=== PATIENT | female | born 1975 | race Caucasian/White ===

== ENCOUNTER 2017-07-15 12:03 | Emergency (ER) | payer OTHER ==
[~2017-07-15] VITALS: Ht 154.9 cm; Wt 80.0 kg
[~2017-07-15 12:03] MED LIST: AMIT10TA6 PO; CART120C PO; FIORINAL2 PO; LEVO75TA3 PO; MEDR4PAK PO; MELA5 PO; NITR1SUB2 SL; OMEP20TA93 PO
[2017-07-15 12:09] VITALS: BP 157/105; PULSE 95; RESP 16; TEMP 97.9
[2017-07-15] MEDS ORDERED: SODIUM CHLOR 0.9% 1000 ML INJ 1,000 ML IV ONE (12:13)
[2017-07-15 12:15] VITALS: O2SAT 98
[2017-07-15] MEDS ORDERED: diphenhydrAMINE HCL 50 MG/ML VIAL IVP ONE (12:15)
[2017-07-15] MEDS ORDERED: SODIUM CHLORIDE 0.9% FLUSH 10 ML FLUSH IVF PRN (12:15)
[2017-07-15] MEDS ORDERED: METOCLOPRAMIDE HCL 10 MG/2 ML VIAL IVP ONE (12:15)
[2017-07-15] MEDS ORDERED: KETOROLAC TROMETHAMINE 30 MG/ML (IVP) VIAL IVP ONE (12:15)
--- NOTE | 2017-07-15 12:15 | PD ---
HPI Chief Complaint: Neuro Symptoms/ Deficits Time Seen by Provider: 12:15 Travel History International Travel<30 days: No Contact w/Intl Traveler<30days: No Traveled to known affect area: No History of Present Illness HPI is a 42-year-old female with a history of recurrent migraines presents to the emergency department today because she had numbness and tingling in her left upper left lower extremity prior to arrival. Patient denies any focalized weakness. She states she was driving to hear anyways to be seen for her headache. States the headache is signed, denies any nausea or vomiting, states she took her medicine at home for migraine and didn't help. Symptoms for the past 3 days, gradually worsening, associated signs symptoms as above, context as above. PFSH Past Medical History Blood Disorders: No Heart Rhythm Problems: No Cancer: No Cardiac Catheterization: No Cardiovascular Problems: Yes High Cholesterol: Yes Chemotherapy: No Chest Pain: Yes Congestive Heart Failure: No Diabetes: No Diminished Hearing: No Endocrine: No Genitourinary: No Immune Disorder: No Musculoskeletal: No Neurologic: No Psychiatric: No Reproductive: No Respiratory: No Radiation Therapy: No Thyroid Disease: Yes Tubal Ligation: Yes Past Surgical History Abdominal Surgery: Yes (right ovary;biopsy left ovary) Coronary Artery Bypass Graft: No Hysterectomy: Yes Other Surgery: Yes (exploratory lap x 2) Social History Alcohol Use: No Tobacco Use: No Substance Use: No Allergies-Medications (Allergen,Severity, Reaction): Coded Allergies: No Known Allergies (Unverified Adverse Reaction, Unknown, 06/29/17) Reported Meds & Prescriptions Reported Meds & Active Scripts Active Medrol Dosepak (Methylprednisolone) 4 Mg Dspk 4 Mg PO DIRECTED Per Pharmacist direction Medrol Dosepak (Methylprednisolone) 4 Mg Dspk 4 Mg PO DIRECTED Per Pharmacist direction Fiorinal (Butalbital/Aspirin/Caffeine) 50-325-40 Mg Cap 1 Cap PO Q6HR PRN Do not exceed 6 capsules/day. Melatonin 5 Mg Tab 5 Mg PO HS Omeprazole 20 Mg Tab 20 Mg PO DAILY Amitriptyline (Amitriptyline HCl) 10 Mg Tab 10 Mg PO HS Levothyroxine (Levothyroxine Sodium) 75 Mcg Tab 75 Mcg PO DAILY Reported Nitroglycerin SL (Nitroglycerin) 0.3 Mg Subl 0.3 Mg SL DIRECTED PRN ONE TABLET UNDER THE TONGUE NEEDED FOR CHEST PAIN, MAY REPEAT EVERY FIVE MINUTES FOR A TOTAL OF 3 DOSES OR CALL 911 IF NO RELIEF Cartia Xt (Diltiazem ER 24 HR) 120 Mg Caper 120 Mg PO DAILY Review of Systems Except as stated in HPI: all other systems reviewed are Neg Physical Exam Narrative GENERAL: Well-developed well-nourished no obvious distress SKIN: Focused skin assessment warm/dry. HEAD: Atraumatic. Normocephalic. EYES: Pupils equal and round. No scleral icterus. No injection or drainage. ENT: No nasal bleeding or discharge. Mucous membranes pink and moist. NECK: Trachea midline. No JVD. CARDIOVASCULAR: Regular rate and rhythm. No murmur appreciated. RESPIRATORY: No accessory muscle use. Clear to auscultation. Breath sounds equal bilaterally. GASTROINTESTINAL: Abdomen soft, non-tender, nondistended. Hepatic and splenic margins not palpable. MUSCULOSKELETAL: No obvious deformities. No clubbing. No cyanosis. No edema. NEUROLOGICAL: Awake and alert. No nerves II-12 are grossly intact and nonfocal , 5 out of 5 strength in all 4 extremity's, sensation is intact and equal bilaterally. Ambulates with even narrow based gait. PSYCHIATRIC: Appropriate mood and affect; insight and judgment normal. Data Data Last Documented VS Vital Signs Date Time Temp Pulse Resp B/P (MAP) Pulse Ox O2 Delivery O2 Flow Rate FiO2 07/15/17 15:02 07/15/17 14:39 95 14 100 Room Air 07/15/17 12:09 97.9 Orders Orders Complete Blood Count With Diff (07/15/17 12:13) Comprehensive Metabolic Panel (07/15/17 12:13) Westergren Sedimentation Rate (07/15/17 12:13) C-Reactive Protein (Crp) (07/15/17 12:13) Ct Brain W/O Iv Contrast(Rout) (07/15/17 12:13) Ecg Monitoring (07/15/17 12:13) Iv Access Insert/Monitor (07/15/17 12:13) Oximetry (07/15/17 12:13) Sodium Chloride 0.9% Flush (Ns Flush) (07/15/17 12:15) Ketorolac Inj (Toradol Inj) (07/15/17 12:15) Diphenhydramine Inj (Benadryl Inj) (07/15/17 12:15) Metoclopramide Inj (Reglan Inj) (07/15/17 12:15) Sodium Chlor 0.9% 1000 Ml Inj (Ns 1000 M (07/15/17 12:13) Ed Discharge Order (07/15/17 14:56) Electrocardiogram (07/15/17 12:17) Labs Laboratory Tests Test 07/15/17 12:25 White Blood Count 6.9 TH/MM3 Red Blood Count 4.56 MIL/MM3 Hemoglobin 14.1 GM/DL Hematocrit 41.9 % Mean Corpuscular Volume 91.9 FL Mean Corpuscular Hemoglobin 30.9 PG Mean Corpuscular Hemoglobin Concent 33.6 % Red Cell Distribution Width 14.2 % Platelet Count 210 TH/MM3 Mean Platelet Volume 7.8 FL Neutrophils (%) (Auto) 61.3 % Lymphocytes (%) (Auto) 32.6 % Monocytes (%) (Auto) 4.8 % Eosinophils (%) (Auto) 0.8 % Basophils (%) (Auto) 0.5 % Neutrophils # (Auto) 4.2 TH/MM3 Lymphocytes # (Auto) 2.3 TH/MM3 Monocytes # (Auto) 0.3 TH/MM3 Eosinophils # (Auto) 0.1 TH/MM3 Basophils # (Auto) 0.0 TH/MM3 CBC Comment DIFF FINAL Differential Comment Erythrocyte Sedimentation Rate 5 mm/hr Blood Urea Nitrogen 14 MG/DL Creatinine 0.74 MG/DL Random Glucose 99 MG/DL Total Protein 7.2 GM/DL Albumin 3.7 GM/DL Calcium Level 8.7 MG/DL Alkaline Phosphatase 48 U/L Aspartate Amino Transf (AST/SGOT) 17 U/L Alanine Aminotransferase (ALT/SGPT) 29 U/L Total Bilirubin 0.4 MG/DL Sodium Level 139 MEQ/L Potassium Level 3.5 MEQ/L Chloride Level 107 MEQ/L Carbon Dioxide Level 24.4 MEQ/L Anion Gap 8 MEQ/L Estimat Glomerular Filtration Rate 85 ML/MIN C-Reactive Protein 0.47 MG/DL [facility] Medical Decision Making Medical Screen Exam Complete: Yes Emergency Medical Condition: Yes Differential Diagnosis Complex migraine, TIA seems unlikely, CVA seems highly unlikely. Narrative Course Patient roomed in emergency department, on further history she states this happened once before and she was placed on steroids which helped. She was given a medicine in the emergency department had some relief, but she appears comfortable and in no obvious distress. Neurologic exam is completely nonfocal although she does endorse some mild left sided numbness and tingling. Basic workup was negative in the emergency department including a CAT scan of her head. ESR and CRP are negative as well. Patient low risk for cerebrovascular disease seems fairly atypical for as well. Discussed outpatient follow-up with a neurologist will place her on a Medrol Dosepak. Discussed return to ED criteria. Diagnosis Primary Impression: Headache Additional Impression: Migraine Referrals: Dinorah Florez MD Med/Other Pt SpecificInfo: Prescription(s) given Scripts Methylprednisolone Dosepak (Medrol Dosepak) 4 Mg Dspk 4 MG PO DIRECTED, #1 DSPK 0 Refills Per Pharmacist direction Prov: Regino Mao MD 07/15/17 Disposition: 01 DISCHARGE HOME Condition: Stable Regino Mao MD Jul 15, 2017 12:15
[2017-07-15 12:51] LABS: AUTOMATED NEUTROPHIL # 4.2 TH/MM3 (1.8-7.7); BASOPHIL % 0.5 % (0.0-2.0); EOSINOPHIL # 0.1 TH/MM3 (0-0.4); EOSINOPHIL % 0.8 % (0.0-4.0); HEMATOCRIT 41.9 % (35.0-46.0); HEMO FLAGS DIFF FINAL; LYMPH % 32.6 % (9.0-44.0); LYMPHOCYTE # 2.3 TH/MM3 (1.0-4.8); MEAN CELL VOLUME 91.9 FL (80.0-100.0); MEAN CORPUSCULAR HEMOGLOBIN 30.9 PG (27.0-34.0); MEAN CORPUSCULAR HGB CONC 33.6 % (32.0-36.0); MONO % 4.8 % (0.0-8.0); NEUT % 61.3 % (16.0-70.0); PLATELET COUNT 210 TH/MM3 (150-450); RED BLOOD COUNT 4.56 MIL/MM3 (4.00-5.30); RED CELL DISTRIBUTION WIDTH 14.2 % (11.6-17.2); WHITE BLOOD COUNT 6.9 TH/MM3 (4.0-11.0)
[2017-07-15 13:08] LABS: ALT (GPT) 29 U/L (10-53); ANION GAP 8 MEQ/L (5-15); AST (GOT) 17 U/L (15-37); BICARBONATE 24.4 MEQ/L (21.0-32.0); BLOOD UREA NITROGEN 14 MG/DL (7-18); CHLORIDE 107 MEQ/L (98-107); GLOMERULAR FILTRATION RATE 85 ML/MIN (>89); POTASSIUM 3.5 MEQ/L (3.5-5.1); SODIUM (NA) 139 MEQ/L (136-145)
--- NOTE | 2017-07-15 13:09 | RADRPT ---
EXAM DATE/TIME: 07/15/2017 12:55 [facility] COMPARISON: No previous studies available for comparison. INDICATIONS : Cephalgia. Left facial numbness. RADIATION DOSE: 34.46 CTDIvol (mGy) MEDICAL HISTORY : None SURGICAL HISTORY : Hysterectomy. Cholecystectomy. ENCOUNTER: Initial ACUITY: 1 day PAIN SCALE: 5/10 LOCATION: Bilateral cranial TECHNIQUE: Multiple contiguous axial images were obtained of the head. Using automated exposure control and adj ustment of the mA and/or kV according to patient size, radiation dose was kept as low as reasonably a chievable to obtain optimal diagnostic quality images. DICOM format image data is available electro nically for review and comparison. FINDINGS: CEREBRUM: The ventricles are normal for age. No evidence of midline shift, mass lesion, hemorrhage or acute in farction. No extra-axial fluid collections are seen. POSTERIOR FOSSA: The cerebellum and brainstem are intact. The 4th ventricle is midline. The cerebellopontine angle i s unremarkable. EXTRACRANIAL: The visualized portion of the orbits is intact. SKULL: The calvaria is intact. No evidence of skull fracture. CONCLUSION: No acute disease. Regino Barron MD on July 15, 2017 at 13:07 Board Certified Radiologist. This report was verified electronically.
[2017-07-15 13:10] LABS: ALKALINE PHOSPHATASE 48 U/L (45-117); TOTAL BILIRUBIN ADULT 0.4 MG/DL (0.2-1.0)
[2017-07-15 13:20] VITALS: BP 158/98; PULSE 98; RESP 16; O2SAT 100
[2017-07-15 14:39] VITALS: BP 137/97; PULSE 95; RESP 14; O2SAT 100
[2017-07-15] MEDS ORDERED: MEDR4PAK PO (14:55)
--- NOTE | 2017-07-16 15:52 | EKG ---
Date Performed: 07/15/2017 Time Performed: 12:17:19 PTAGE: 42 years EKG: Sinus rhythm NORMAL ECG Compared to PREVIOUS TRACING , QRS voltage slightly improved in the precordial leads. PREVIOUS TRACIN 11/15/2015 09.22 DOCTOR: Benjamín Sabillon Interpretating Date/Time 07/16/2017 15:51:12
== END 2017-07-15 15:03 | disposition home or self-care (01) ==
LOC: NEPC 12:03
DX: G43.909 Migraine, unspecified, not intractable, without status migrainosus (principal); R20.0 Anesthesia of skin; E78.00 Pure hypercholesterolemia, unspecified; E07.9 Disorder of thyroid, unspecified; Z79.899 Other long term (current) drug therapy
CPT/HCPCS: 70450; 80053; 85025; 85652; 86140; 93005; 96361; 96374; 96375; 99285; J1200; J1885; J2765; J7030

== ENCOUNTER 2017-07-24 17:59 | Observation (INO) | payer OTHER ==
[~2017-07-24] VITALS: Ht 154.9 cm; Wt 80.0 kg
[2017-07-24 18:15] VITALS: BP 127/81; PULSE 66; RESP 20; TEMP 97.8; O2SAT 97
[2017-07-24] MEDS ORDERED: SODIUM CHLORIDE 0.9% FLUSH 10 ML FLUSH IVF PRN (18:15)
[2017-07-24] MEDS ORDERED: NITROGLYCERIN 2% OINT 1 GM PACKET TOP ONE (18:15)
[2017-07-24] MEDS ORDERED: ASPIRIN 81 MG CHEW TAB PO ONE (18:15)
[2017-07-24] MEDS ORDERED: MORPHINE SULFATE 4 MG/ML INJ IV PUSH ONE (18:15)
[2017-07-24 18:33] VITALS: RESP 16; O2SAT 98
--- NOTE | 2017-07-24 18:49 | PD ---
HPI Chief Complaint: Chest Pain Time Seen by Provider: 18:12 Travel History International Travel<30 days: No Contact w/Intl Traveler<30days: No Traveled to known affect area: No History of Present Illness HPI 42-year-old female with a history of Prinzmetal's angina, hypothyroidism, presents today after having an episode of chest pain. Patient states she had substernal chest pain that radiated to her left side and shoulder. It lasted several minutes. She reported it as an 8 out of 10 on the pain score. She took 2 of her own nitroglycerin decrease it to a 6. When fire arrived they gave her 2 baby aspirins and 2 further nitros which dropped her pain to a 4. She denies any shortness of breath. She denies any nausea. There is no reported diaphoresis. The patient denies any history of tobaccoism. She has no history of hypertension. She states she has borderline elevated cholesterol but her art history instructor told her that she did not need to be on medications at this time. PFSH Past Medical History Blood Disorders: No Heart Rhythm Problems: No Cancer: No Cardiac Catheterization: No Cardiovascular Problems: Yes High Cholesterol: Yes Chemotherapy: No Chest Pain: Yes Congestive Heart Failure: No Coronary Artery Disease: Yes Diabetes: No Diminished Hearing: No Endocrine: No Genitourinary: No Headaches: Yes Immune Disorder: No Musculoskeletal: No Neurologic: No Psychiatric: No Reproductive: No Respiratory: No Radiation Therapy: No Thyroid Disease: Yes (HYPO) Tetanus Vaccination: > 5 Years Influenza Vaccination: No ?: Not : 2 Para: 2 Miscarriage: 0 : 0 Tubal Ligation: Yes Past Surgical History Abdominal Surgery: Yes (right ovary;biopsy left ovary) Cholecystectomy: Yes Coronary Artery Bypass Graft: No Hysterectomy: Yes Other Surgery: Yes (HYSTERECTOMY, TUBAL LIGATION) Social History Alcohol Use: No Tobacco Use: No Substance Use: No Allergies-Medications (Allergen,Severity, Reaction): Coded Allergies: No Known Allergies (Unverified Allergy, Unknown, 07/24/17) Reported Meds & Prescriptions Reported Meds & Active Scripts Active Fiorinal (Butalbital/Aspirin/Caffeine) 50-325-40 Mg Cap 1 Cap PO Q6HR PRN Do not exceed 6 capsules/day. Melatonin 5 Mg Tab 5 Mg PO HS Omeprazole 20 Mg Tab 20 Mg PO DAILY Amitriptyline (Amitriptyline HCl) 10 Mg Tab 10 Mg PO HS Levothyroxine (Levothyroxine Sodium) 75 Mcg Tab 75 Mcg PO DAILY Reported Nitroglycerin SL (Nitroglycerin) 0.3 Mg Subl 0.3 Mg SL DIRECTED PRN ONE TABLET UNDER THE TONGUE NEEDED FOR CHEST PAIN, MAY REPEAT EVERY FIVE MINUTES FOR A TOTAL OF 3 DOSES OR CALL 911 IF NO RELIEF Cartia Xt (Diltiazem ER 24 HR) 120 Mg Caper 120 Mg PO DAILY Review of Systems Except as stated in HPI: all other systems reviewed are Neg General / Constitutional: No: Fever HENT: No: Headaches, Lightheadedness Cardiovascular: Positive: Chest Pain or Discomfort, No: Palpitations, Irregular Rhythm Respiratory: No: Cough Gastrointestinal: No: Nausea, Vomiting, Abdominal Pain Genitourinary: No: Frequency, Dysuria Musculoskeletal: No: Weakness, Pain Neurologic: No: Weakness, Dizziness, Headache Psychiatric: No: Substance Abuse Physical Exam Narrative GENERAL: Well-developed well-nourished female in no acute respiratory distress. SKIN: Focused skin assessment warm/dry. HEAD: Atraumatic. Normocephalic. EYES: No scleral icterus. No injection or drainage. ENT: No nasal bleeding or discharge. Mucous membranes pink and moist. NECK: Trachea midline. No JVD. Supple. CARDIOVASCULAR: Regular rate and rhythm. No murmur appreciated. RESPIRATORY: No accessory muscle use. Clear to auscultation. Breath sounds equal bilaterally. GASTROINTESTINAL: Abdomen soft, non-tender, nondistended. Hepatic and splenic margins not palpable. MUSCULOSKELETAL: No obvious deformities. No clubbing. No cyanosis. No edema. NEUROLOGICAL: Awake and alert. No obvious cranial nerve deficits. Motor grossly within normal limits. Normal speech. Data Data Last Documented VS Vital Signs Date Time Temp Pulse Resp B/P (MAP) Pulse Ox O2 Delivery O2 Flow Rate FiO2 07/24/17 19:04 81 18 131/84 (100) 97 Room Air 07/24/17 18:15 97.8 Orders Orders Electrocardiogram (07/24/17 18:12) Basic Metabolic Panel (Bmp) (07/24/17 18:12) Ckmb (Isoenzyme) Profile (07/24/17 18:12) Complete Blood Count With Diff (07/24/17 18:12) Magnesium (Mg) (07/24/17 18:12) Prothrombin Time / Inr (Pt) (07/24/17 18:12) Act Partial Throm Time (Ptt) (07/24/17 18:12) Troponin I (07/24/17 18:12) Chest, Single Ap (07/24/17 18:12) Ecg Monitoring (07/24/17 18:12) Bilateral Bp Monitoring (07/24/17 18:12) Iv Access Insert/Monitor (07/24/17 18:12) Oximetry (07/24/17 18:12) Oxygen Administration (07/24/17 18:12) Aspirin Chew (Aspirin Chew) (07/24/17 18:15) Morphine Inj (Morphine Inj) (07/24/17 18:15) Nitroglycerin 2% Oint (Nitroglycerin 2% (07/24/17 18:15) Sodium Chloride 0.9% Flush (Ns Flush) (07/24/17 18:15) Admit Order (Ed Use Only) (07/24/17 ) Labs Laboratory Tests Test 07/24/17 18:40 07/24/17 19:30 White Blood Count 7.5 TH/MM3 Red Blood Count 4.40 MIL/MM3 Hemoglobin 13.8 GM/DL Hematocrit 40.3 % Mean Corpuscular Volume 91.6 FL Mean Corpuscular Hemoglobin 31.4 PG Mean Corpuscular Hemoglobin Concent 34.3 % Red Cell Distribution Width 14.2 % Platelet Count 221 TH/MM3 Mean Platelet Volume 8.1 FL Neutrophils (%) (Auto) 58.4 % Lymphocytes (%) (Auto) 34.6 % Monocytes (%) (Auto) 5.1 % Eosinophils (%) (Auto) 1.1 % Basophils (%) (Auto) 0.8 % Neutrophils # (Auto) 4.4 TH/MM3 Lymphocytes # (Auto) 2.6 TH/MM3 Monocytes # (Auto) 0.4 TH/MM3 Eosinophils # (Auto) 0.1 TH/MM3 Basophils # (Auto) 0.1 TH/MM3 CBC Comment AUTO DIFF Differential Comment AUTO DIFF CONFIRMED Blood Urea Nitrogen 9 MG/DL Creatinine 0.74 MG/DL Random Glucose 86 MG/DL Calcium Level 8.0 MG/DL Magnesium Level 1.9 MG/DL Sodium Level 141 MEQ/L Potassium Level 3.3 MEQ/L Chloride Level 108 MEQ/L Carbon Dioxide Level 25.3 MEQ/L Anion Gap 8 MEQ/L Estimat Glomerular Filtration Rate 85 ML/MIN Total Creatine Kinase 46 U/L Troponin I LESS THAN 0.02 NG/ML Lipase 169 U/L Prothrombin Time 10.2 SEC Prothromb Time International Ratio 0.9 RATIO Activated Partial Thromboplast Time 23.3 SEC MDM Medical Decision Making Medical Screen Exam Complete: Yes Emergency Medical Condition: Yes Differential Diagnosis ACS versus muscle skeletal discomfort versus peptic ulcer disease versus Prinzmetal angina Narrative Course This is a 42-year-old female with a history of Prinzmetal's angina, presents with complaints of chest pain. Patient reports the pain as an 8 out of 10 when it started. EKG shows no evidence of acute process. Patient has labs pending. She'll be signed out to Dr. Samuel, physician replacing me at change of shift. Disposition will be per her. Diagnosis Primary Impression: Chest pain Qualified Codes: R07.9 - Chest pain, unspecified Gurpreet Macias MD Jul 24, 2017 18:49
[2017-07-24 18:55] LABS: AUTOMATED NEUTROPHIL # 4.4 TH/MM3 (1.8-7.7); BASOPHIL # 0.1 TH/MM3 (0-0.2); BASOPHIL % 0.8 % (0.0-2.0); EOSINOPHIL # 0.1 TH/MM3 (0-0.4); EOSINOPHIL % 1.1 % (0.0-4.0); HEMATOCRIT 40.3 % (35.0-46.0); LYMPH % 34.6 % (9.0-44.0); LYMPHOCYTE # 2.6 TH/MM3 (1.0-4.8); MEAN CELL VOLUME 91.6 FL (80.0-100.0); MEAN CORPUSCULAR HEMOGLOBIN 31.4 PG (27.0-34.0); MEAN CORPUSCULAR HGB CONC 34.3 % (32.0-36.0); MONO % 5.1 % (0.0-8.0); NEUT % 58.4 % (16.0-70.0); PLATELET COUNT 221 TH/MM3 (150-450); RED CELL DISTRIBUTION WIDTH 14.2 % (11.6-17.2); WHITE BLOOD COUNT 7.5 TH/MM3 (4.0-11.0)
--- NOTE | 2017-07-24 18:55 | RADRPT ---
EXAM DATE/TIME: 07/24/2017 18:21 [facility] COMPARISON: CHEST SINGLE AP, June 26, 2016, 18:30. INDICATIONS : Chest pain. MEDICAL HISTORY : Hypothyroidism. Diastolic dysfunction, coronary artery spasms. SURGICAL HISTORY : Hysterectomy. Cholecystectomy. ENCOUNTER: Initial ACUITY: 1 day PAIN SCORE: 6/10 LOCATION: Bilateral chest FINDINGS: A single view of the chest demonstrates the lungs to be symmetrically aerated without evidence of mas s, infiltrate or effusion. The cardiomediastinal contours are unremarkable. Osseous structures are intact. CONCLUSION: The lungs are clear. Cam Bird MD on July 24, 2017 at 18:53 Board Certified Radiologist. This report was verified electronically.
[2017-07-24 18:57] LABS: HEMO FLAGS AUTO DIFF
[2017-07-24 19:04] VITALS: BP 131/84; PULSE 81; RESP 18; O2SAT 97
[2017-07-24 19:22] LABS: ANION GAP 8 MEQ/L (5-15); BICARBONATE 25.3 MEQ/L (21.0-32.0); BLOOD UREA NITROGEN 9 MG/DL (7-18); CHLORIDE 108 MEQ/L (98-107); CREATINE KINASE 46 U/L (26-192); GLOMERULAR FILTRATION RATE 85 ML/MIN (>89); MAGNESIUM 1.9 MG/DL (1.5-2.5); POTASSIUM 3.3 MEQ/L (3.5-5.1); SODIUM (NA) 141 MEQ/L (136-145)
[2017-07-24 19:31] LABS: SCAN/DIFF AUTO DIFF CONFIRMED
--- NOTE | 2017-07-24 19:56 | PD ---
Physical Exam Narrative Since signed out to me by Dr. Macias. Please see his documentation for complete details. Briefly, patient has history of Prinzmetal angina. She came in today because she had severe chest pain. She reports some shortness of breath with nausea and a feeling of heat at the time. She says she still has some chest pain but her symptoms have improved. She also reports that she has had blurred vision and some tingling and weakness to the left side of her face and left arm that comes and goes. She says she was here last week and was told she may have had a TIA. Per notes, she had a negative CT of her head and it was thought that her symptoms may be related to migraine at that time. However, she says that her symptoms have not resolved. Exam shows no neurologic abnormalities. She has equal strength in both her arms and legs. Heart is regular in rate and rhythm. Lungs are clear to auscultation. Data Data Last Documented VS Vital Signs Date Time Temp Pulse Resp B/P (MAP) Pulse Ox O2 Delivery O2 Flow Rate FiO2 07/24/17 19:04 81 18 131/84 (100) 97 Room Air 07/24/17 18:15 97.8 Orders Orders Electrocardiogram (07/24/17 18:12) Basic Metabolic Panel (Bmp) (07/24/17 18:12) Ckmb (Isoenzyme) Profile (07/24/17 18:12) Complete Blood Count With Diff (07/24/17 18:12) Magnesium (Mg) (07/24/17 18:12) Prothrombin Time / Inr (Pt) (07/24/17 18:12) Act Partial Throm Time (Ptt) (07/24/17 18:12) Troponin I (07/24/17 18:12) Chest, Single Ap (07/24/17 18:12) Ecg Monitoring (07/24/17 18:12) Bilateral Bp Monitoring (07/24/17 18:12) Iv Access Insert/Monitor (07/24/17 18:12) Oximetry (07/24/17 18:12) Oxygen Administration (07/24/17 18:12) Aspirin Chew (Aspirin Chew) (07/24/17 18:15) Morphine Inj (Morphine Inj) (07/24/17 18:15) Nitroglycerin 2% Oint (Nitroglycerin 2% (07/24/17 18:15) Sodium Chloride 0.9% Flush (Ns Flush) (07/24/17 18:15) Labs Laboratory Tests Test 07/24/17 18:40 07/24/17 19:30 White Blood Count 7.5 TH/MM3 Red Blood Count 4.40 MIL/MM3 Hemoglobin 13.8 GM/DL Hematocrit 40.3 % Mean Corpuscular Volume 91.6 FL Mean Corpuscular Hemoglobin 31.4 PG Mean Corpuscular Hemoglobin Concent 34.3 % Red Cell Distribution Width 14.2 % Platelet Count 221 TH/MM3 Mean Platelet Volume 8.1 FL Neutrophils (%) (Auto) 58.4 % Lymphocytes (%) (Auto) 34.6 % Monocytes (%) (Auto) 5.1 % Eosinophils (%) (Auto) 1.1 % Basophils (%) (Auto) 0.8 % Neutrophils # (Auto) 4.4 TH/MM3 Lymphocytes # (Auto) 2.6 TH/MM3 Monocytes # (Auto) 0.4 TH/MM3 Eosinophils # (Auto) 0.1 TH/MM3 Basophils # (Auto) 0.1 TH/MM3 CBC Comment AUTO DIFF Differential Comment AUTO DIFF CONFIRMED Blood Urea Nitrogen 9 MG/DL Creatinine 0.74 MG/DL Random Glucose 86 MG/DL Calcium Level 8.0 MG/DL Magnesium Level 1.9 MG/DL Sodium Level 141 MEQ/L Potassium Level 3.3 MEQ/L Chloride Level 108 MEQ/L Carbon Dioxide Level 25.3 MEQ/L Anion Gap 8 MEQ/L Estimat Glomerular Filtration Rate 85 ML/MIN Total Creatine Kinase 46 U/L Troponin I LESS THAN 0.02 NG/ML [facility] Supervised Visit with KATIA: No Narrative Course ECG shows no evidence of ischemia. First troponin is negative. Based on patient's continued neurologic symptoms as well as a chest pain. She'll be admitted for further management. Diagnosis Primary Impression: Chest pain Qualified Codes: R07.9 - Chest pain, unspecified Additional Impression: Neurologic abnormality Admitting Information Admitting Physician Requests: Observation Josephine Castellon MD Jul 24, 2017 19:56
[2017-07-24 19:57] LABS: APTT (PATIENT) 23.3 SEC (24.3-30.1); INTERNATIONAL NORMALIZED RATIO 0.9 RATIO; PROTHROMBIN TIME - PATIENT 10.2 SEC (9.8-11.6)
--- NOTE | 2017-07-24 20:45 | HHI.HP ---
[facility] Service [facility] Primary Care Physician Mauro Church MD, R3 Admission Diagnosis Chest pain, neuro symptoms Diagnoses: International Travel<30 Days: No Contact w/Intl Traveler<30days: No History of Present Illness Patient is a 42-year-old patient with a history of coronary artery spasm and migraines who presents with chest pain and neurologic symptoms. She states she was sitting at her desk writing at approximately 5pm this evening and experienced crushing midsternal chest pain radiating to the back and left shoulder and arm. Character was sharp, pressure, crushing pain. Nausea present, no vomiting. Lasted 5-10 minutes. Associated symptoms were lightheadedness and cold sweat. Severity of pain 10+. gave her home dose of nitroglycerin x 2 and symptoms improved but not 100%. She had two more doses of nitro by EMS prior to ED arrival. Pain felt different than coronary artery spasm pain she has had before. Since ED arrival, status-post morphine and pain is now 2-3/10 in intensity but she is status-post multiple doses of morphine, nitroglycerin and aspirin (x1). Last week, patient had neurologic symptoms (07/15). She was driving from a friend's house and she began to feel confused, with left-sided weakness, numbness and tingling. She also had vision changes: she could not see details. She was seen in ED and stroke protocol was initiated. CT scan was performed and negative and patient was sent home with diagnosis of complex migraine. Symptoms lasted through to next day. Referral for neurologist was given in ED, but patient has not established. No current headaches but still has some residual visual acuity loss. No double vision. Left sided tingling returned today but not the weakness. PCP is Dr. Mauro Church. (Meggan Reynolds MD R2) Review of Systems Constitutional: DENIES: Fever, Weight gain, Weight loss, Chills, Change in appetite Eyes: DENIES: Blurred vision, Diplopia Ears, nose, mouth, throat: DENIES: Tinnitus, Hearing loss, Vertigo Respiratory: COMPLAINS OF: Cough, DENIES: Wheezing, Shortness of breath Cardiovascular: COMPLAINS OF: Chest pain, Palpitations, DENIES: PND, Lower Extremity Edema, Orthopnea Gastrointestinal: COMPLAINS OF: Diarrhea (chronic s/p marshall), Nausea, DENIES: Abdominal pain, Black stools, Bloody stools, Constipation, Vomiting Genitourinary: DENIES: Abnormal vaginal bleeding, Urinary frequency, Urinary incontinence, Hematuria, Dysuria Musculoskeletal: DENIES: Joint pain, Muscle aches Integumentary: DENIES: Pruritus, Rash Hematologic/lymphatic: DENIES: Bruising, Lymphadenopathy Neurologic: COMPLAINS OF: Paresthesias (left-sided), Poor Balance, DENIES: Abnormal gait, Headache, Seizures (Meggan Reynolds MD R2) Past Family Social History Past Medical History Past Medical History: Hypothyroidism Coronary artery spasm Fatty liver Visceral hypersensitivity Borderline high cholesterol Recurrent chest pain thought to be due to coronary artery spasm. Heart catheterization 2014 within normal limits. Migraine: history of migraine headache. Seen in [facility] early June 2017 and received Medrol Dosepak and Toradol which improved her symptoms. Past Surgical/Procedural History: Tubal ligation 1996 Multiple laparoscopies from [id number] Partial hysterectomy in 2002 (still has one piece of ovary due to fused to colon ) Cholecystectomy 2016 Other Physicians/Providers Involved in the Care of Patient: Gastroenterology - Dr. Chiang Cardiology - Dr. Naomi Merritt Family History: Father: at 59. She was not Close to him Mother: 63 and healthy. Maternal grandmother: brainstem congenital disorder starting with "s" Siblings: One brother 37 healthy. One half-sister 31 healthy Children: Daughter 26 she has a goiter; son 22 kidney stones. 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 Quit 13 years ago Alcohol: None Illicit drug use: Never Preventative: Cervical cancer screening: She is getting a Pap smear this year with her FOOD PRESERVATION SCIENTIST Dr. Saldana Colonoscopy: At age 48 Hypertension screening: every visit Lipid screening: Patient reports a normal cholesterol result in early 2017 and she does not see the need for the ordering labs at this time Past Surgical History above Reported Medications Reported Meds & Active Scripts Active Medrol Dosepak (Methylprednisolone) 4 Mg Dspk 4 Mg PO DIRECTED Per Pharmacist direction Medrol Dosepak (Methylprednisolone) 4 Mg Dspk 4 Mg PO DIRECTED Per Pharmacist direction Fiorinal (Butalbital/Aspirin/Caffeine) 50-325-40 Mg Cap 1 Cap PO Q6HR PRN Do not exceed 6 capsules/day. Melatonin 5 Mg Tab 5 Mg PO HS Omeprazole 20 Mg Tab 20 Mg PO DAILY Amitriptyline (Amitriptyline HCl) 10 Mg Tab 10 Mg PO HS Levothyroxine (Levothyroxine Sodium) 75 Mcg Tab 75 Mcg PO DAILY Reported Nitroglycerin SL (Nitroglycerin) 0.3 Mg Subl 0.3 Mg SL DIRECTED PRN ONE TABLET UNDER THE TONGUE NEEDED FOR CHEST PAIN, MAY REPEAT EVERY FIVE MINUTES FOR A TOTAL OF 3 DOSES OR CALL 911 IF NO RELIEF Cartia Xt (Diltiazem ER 24 HR) 120 Mg Caper 120 Mg PO DAILY (Meggan Reynolds MD R2) Allergies: Coded Allergies: No Known Allergies (Unverified Allergy, Unknown, 07/24/17) Active Ordered Medications Inpatient Medications Aspirin (Aspirin Chew) 162 mg ONCE ONCE PO Last administered on 07/24/17 18: 48; Start 07/24/17 at 18:15; Stop 07/24/17 at 18:16; Status DC Morphine Sulfate (Morphine Inj) 2 mg ONCE ONCE IV PUSH Last administered on 18:48; Start 07/24/17 at 18:15; Stop 07/24/17 at 18:16; Status DC Nitroglycerin (Nitroglycerin 2% Oint) 1 inch ONCE ONCE TOP Last administered on 07/24/17 18:48; Start 07/24/17 at 18:15; Stop 07/24/17 at 18:16; Status DC Sodium Chloride (NS Flush) 2 ml UNSCH PRN IVF FLUSH AFTER USING IV ACCESS; Start 07/24/17 at 18:15 Family History above Social History above (Meggan Reynolds MD R2) Physical Exam Vital Signs Vital Signs Date Time Temp Pulse Resp B/P (MAP) Pulse Ox O2 Delivery O2 Flow Rate FiO2 07/24/17 19:04 81 18 131/84 (100) 97 Room Air 07/24/17 18:33 16 98 Room Air 07/24/17 18:15 97.8 66 20 127/81 (96) 97 Physical Exam GENERAL: well-nourished patient in no apparent distress. Pleasant. Son at bedside. SKIN: Warm and dry. Tattoos on back x 2. No rashes or ecchymoses. HEAD: Atraumatic. Normocephalic. No scalp or sinus tenderness. EYES: PERRLA. Pupils 3mm. EOMI. No scleral icterus. No injection or drainage. ENT: No nasal bleeding or discharge. Mucous membranes pink and moist. NECK: Trachea midline. No JVD. No meningeal signs. CARDIOVASCULAR: Regular rate and rhythm. No murmurs, gallops, or rubs. CHEST: +chest wall tenderness, mild intensity. RESPIRATORY: No accessory muscle use. Clear to auscultation without wheezes or crackles. GASTROINTESTINAL: Abdomen soft, non-tender, nondistended, obese. Normal bowel sounds. Hepatic and splenic margins not palpable. MUSCULOSKELETAL: Extremities without clubbing, cyanosis, or edema. No obvious deformities. NEUROLOGICAL: Awake and alert. SNUBBER II-XII intact. Visual acuity grossly normal. No cerebellar signs. Reflexes 2+ in UEs and LEs bilaterally. Decreased sensation to light touch and pinprick sensation to left face and LUE only. Motor grossly within normal limits. 5/5 muscle strength in the arms and legs. Normal speech. PSYCHIATRIC: Appropriate mood and affect; insight and judgment normal. Laboratory Laboratory Tests Test 07/24/17 18:40 07/24/17 19:30 White Blood Count 7.5 Red Blood Count 4.40 Hemoglobin 13.8 Hematocrit 40.3 Mean Corpuscular Volume 91.6 Mean Corpuscular Hemoglobin 31.4 Mean Corpuscular Hemoglobin Concent 34.3 Red Cell Distribution Width 14.2 Platelet Count 221 Mean Platelet Volume 8.1 Neutrophils (%) (Auto) 58.4 Lymphocytes (%) (Auto) 34.6 Monocytes (%) (Auto) 5.1 Eosinophils (%) (Auto) 1.1 Basophils (%) (Auto) 0.8 Neutrophils # (Auto) 4.4 Lymphocytes # (Auto) 2.6 Monocytes # (Auto) 0.4 Eosinophils # (Auto) 0.1 Basophils # (Auto) 0.1 CBC Comment AUTO DIFF Differential Comment AUTO DIFF CONFIRMED Blood Urea Nitrogen 9 Creatinine 0.74 Random Glucose 86 Calcium Level 8.0 Magnesium Level 1.9 Sodium Level 141 Potassium Level 3.3 Chloride Level 108 Carbon Dioxide Level 25.3 Anion Gap 8 Estimat Glomerular Filtration Rate 85 Total Creatine Kinase 46 Troponin I LESS THAN 0.02 Prothrombin Time 10.2 Prothromb Time International Ratio 0.9 Activated Partial Thromboplast Time 23.3 (Meggan Reynolds MD R2) Result Diagram: 07/24/17183907/24/171839 Imaging Last Impressions Chest X-Ray 07/24/171811 Signed Impressions: Service Date/Time: Monday, July 24, 2017 18:21 - CONCLUSION: The lungs are clear. Cam Bird MD (Meggan Reynolds MD R2) Caprini VTE Risk Assessment Caprini VTE Risk Assessment: Mod/High Risk (score >= 2) Caprini Risk Assessment Model Point Value = 1 Point Value = 2 Point Value = 3 Point Value = 5 Age 41-60 Minor surgery BMI > 25 kg/m2 Swollen legs Varicose veins or History of unexplained or recurrent spontaneous Oral contraceptives or hormone replacement Sepsis (< 1 month) Serious lung disease, including pneumonia (< 1 month) Abnormal pulmonary function Acute myocardial infarction Congestive heart failure (< 1 month) History of inflammatory bowel disease Medical patient at bed rest Age 61-74 Arthroscopic surgery Major open surgery (> 45 min) Laparoscopic surgery (> 45 min) Malignancy Confined to bed (> 72 hours) Immobilizing plaster cast Central venous access Age >= 75 History of VTE Family history of VTE Factor V Leiden Prothrombin [id number] Lupus anticoagulant Anticardiolipin antibodies Elevated serum homocysteine Heparin-induced thrombocytopenia Other congenital or acquired thrombophilia Stroke (< 1 month) Elective arthroplasty Hip, pelvis, or leg fracture Acute spinal cord injury (< 1 month) Prophylaxis Regimen Total Risk Factor Score Risk Level Prophylaxis Regimen 0-1 Low Early ambulation 2 Moderate Order ONE of the following: *Sequential Compression Device (SCD) *Heparin 5000 units SQ BID 3-4 Higher Order ONE of the following medications: *Heparin 5000 units SQ TID *Enoxaparin/Lovenox 40 mg SQ daily (WT < 150 kg, CrCl > 30 mL/min) *Enoxaparin/Lovenox 30 mg SQ daily (WT < 150 kg, CrCl > 10-29 mL/min) *Enoxaparin/Lovenox 30 mg SQ BID (WT < 150 kg, CrCl > 30 mL/min) AND/OR *Sequential Compression Device (SCD) 5 or more Highest Order ONE of the following medications: *Heparin 5000 units SQ TID (Preferred with Epidurals) *Enoxaparin/Lovenox 40 mg SQ daily (WT < 150 kg, CrCl > 30 mL/min) *Enoxaparin/Lovenox 30 mg SQ daily (WT < 150 kg, CrCl > 10-29 mL/min) *Enoxaparin/Lovenox 30 mg SQ BID (WT < 150 kg, CrCl > 30 mL/min) AND *Sequential Compression Device (SCD) (Meggan Reynolds MD R2) Assessment and Plan Assessment and Plan 42 year old female with coronary artery vasospasm and migraines who presents with chest pain and non-specific neurologic symptoms. She will be admitted for observation, further cardiac studies and neurologic work-up. Code Status Full Code Discussed Condition With Dr. Castellon, Dr. Carcamo (Meggan Reynolds MD R2) Attending Attestation Attending: Dr. Freida Soto --> Dr. Lockhart (on 07/25/2017) (Meggan Reynolds MD R2) I was available for questions re: this pt, but did not interview or examine. Pt to be assessed, including review of this H&P, by Dr Lockhart who assumed FPTS- resident service 07-25-17 (Freida Soto MD) Problem List: (1) Chest pain ICD Codes: R07.9 - Chest pain Status: Acute Plan: Patient has Prinzmetal's angina hx. Floor Grinder is Dr. Naomi Merritt. Presenting with chest pain which improved with nitroglycerin and morphine. Initial studies including cardiac enzymes and EKG unremarkable. She reports having negative cardiac catheterization in 2014. * Admit for observation * Cardiac enzymes, EKG q6hr to monitor for ischemic changes * Pain control with Tylenol 650mg q4hr PRN pain 1-4, [place] 7.5mg-325mg q6hr PRN pain 5-7, morphine 2mg IV PRN pain 8-10, nitroglycerin 0.4mg SL q5min PRN chest pain * Continue Cardizem ER 120mg daily home dose * Aspirin 162mg x 1 in ED, will continue aspirin 325 mg daily tomorrow * Heart healthy diet, no caffeine * Cardiology consult: patient may benefit from inpt stress test (or[facility] to [facility]) (2) Neurologic abnormality ICD Codes: R29.818 - Other symptoms and signs involving the nervous system Status: Acute Plan: Patient reports transient unilateral weakness for which she was seen in ED last week. Weakness resolved but paresthesia persists. Unclear etiology with broad differential to include complex migraine, cervical radiculopathy, MS, TIA , viral syndrome, psychogenic source. Neuro exam only notable for decreased sensation. Patient has normal strength. Visual acuity grossly normal. Suspicion is high for complex migraine. * VS per protocol * Neuro checks q2hr x 12, then q4hr if wnl * MRI brain, MRA brain, US carotids, 2D echo * lipid profile, A1c * PT, OT ordered * Activity OOB with assistance * Neurology consulted. Patient has outpt consult for these symptoms but has not yet established * Hold home Fiorinal (pt has not used it in >1 week) * Continue amitriptyline at 10mg hs home dose (3) Migraine ICD Codes: G43.909 - Migraine, unspecified, not intractable, without status migrainosus Status: Chronic Plan: Currently without any headache, and has not had a headache in the last 24 hours. Not taking Fiorinal over 1 week. * Pain control with as needed Tylenol, [place], morphine * Neurologic consult as noted elsewhere (4) Hypothyroidism ICD Codes: E03.9 - Hypothyroidism Status: Chronic Plan: Continue home dose levothyroxine 75mcg daily Check TSH (5) Fluids/Electrolytes/Nutrition/Prophylaxis Status: Acute Plan: Fluids: tolerating PO Electrolytes: monitor and replete as needed. Mild hypoK on admission, repeat lab prior to repletion Nutrition: heart-healthy diet, NO CAFFEINE DVT Prophylaxis: Early ambulation. Heparin 5000U subQ q12hr/Bilateral SCDs GI Prophylaxis: On omeprazole 20 mg daily at home, will continue PRN anti-HTN: Clonidine 0.1mg PO PRN for SBP > 180/ and/or DBP > 100 Sleep: On melatonin 5 mg nightly, will continue Disposition: Likely 24hr observation and workup, possibly discharge 07/25 (Meggan Reynolds MD R2) Problem Qualifiers (1) Chest pain: Qualified Codes: R07.9 - Chest pain, unspecified Meggan Reynolds MD R2 Jul 24, 2017 20:45 Freida Soto MD Jul 26, 2017 08:53
[2017-07-24 20:51] VITALS: BP 138/88; PULSE 74; RESP 18; O2SAT 97
[2017-07-24] MEDS ORDERED: SENNOSIDES 8.6 MG TAB PO PRN (21:15)
[2017-07-24] MEDS ORDERED: ENALAPRILAT 1.25 MG/ML VIAL IV PUSH PRN (21:15)
[2017-07-24] MEDS ORDERED: NALOXONE HCL 0.4 MG/ML AMP IV PUSH PRN (21:15)
[2017-07-24] MEDS ORDERED: SODIUM CHLORIDE 0.9% FLUSH 10 ML FLUSH IV FLUSH PRN (21:15)
[2017-07-24] MEDS ORDERED: LACTULOSE SYRUP 20 GM/30 ML CUP PO PRN (21:15)
[2017-07-24] MEDS ORDERED: MAGNESIUM HYDROXIDE SUSP 30 ML CUP PO PRN (21:15)
[2017-07-24] MEDS ORDERED: BISACODYL 10 MG SUPP RECTAL PRN (21:15)
[2017-07-24] MEDS ORDERED: ACETAMINOPHEN 325 MG TAB PO PRN (21:15)
[2017-07-24] MEDS ORDERED: ONDANSETRON HCL 4 MG/2 ML VIAL IVP PRN (21:15)
[2017-07-24] MEDS: HEPARIN SODIUM - SQ 10,000 UNITS/ML VIAL SQ SCH (21:24)
[2017-07-24] MEDS ORDERED: MORPHINE SULFATE 4 MG/ML INJ IV PUSH PRN (22:00)
[2017-07-24] MEDS ORDERED: NITROGLYCERIN 0.4 MG SL 25 TABS/BTL SL PRN (22:00)
[2017-07-24 22:22] VITALS: BP 111/69
--- NOTE | 2017-07-24 22:54 | RADRPT ---
EXAM DATE/TIME: 07/24/2017 22:06 [facility] COMPARISON: No previous studies available for comparison. INDICATIONS : Cerebrovascular accident. MEDICAL HISTORY : Hypothyroidism. Hypercholesterolemia. Coronary artery disease. Chest pain. Palpatations. SURGICAL HISTORY : Hysterectomy. Tubal ligation. Right oopherectomy. Biopsy left ovary. ENCOUNTER: Initial ACUITY: 1 day PAIN SCORE: 0/10 LOCATION: Bilateral neck PEAK SYSTOLIC VELOCITIES (cm/sec): ICA/CCA RATIO: Right: 1.0 Left: 0.7 ICA: Right: 87.5 Left: 69.5 CCA: Right: 87.5 Left: 105.7 ECA: Right: 83.1 Left: 85.1 VERTEBRAL: Right: 42.4 antegrade Left: 39.8 antegrade Elevated flow velocities and ICA/CCA ratios have been found to correlate with increased degrees of vessel stenosis, calculated as percentage of diameter relative to a normal segment of distal ICA/CCA FINDINGS: RIGHT CAROTID: No significant stenosis is visualized. The waveforms are within normal limits. LEFT CAROTID: No significant stenosis is visualized. The waveforms are within normal limits. VERTEBRAL ARTERIES: Antegrade flow is seen in both vertebral arteries. MISCELLANEOUS: None. CONCLUSION: Normal hemodynamic profile both carotids. Cam Bird MD on July 24, 2017 at 22:51 Board Certified Radiologist. This report was verified electronically.
[2017-07-24] MEDS: ACETAMINOPHEN/HYDROcodone 325 MG/7.5 MG TAB PO PRN (23:21)
--- NOTE | 2017-07-24 23:23 | EKG ---
Date Performed: 07/24/2017 Time Performed: 18:26:35 PTAGE: 42 years EKG: Sinus rhythm WITH SINUS ARRHYTHMIA NORMAL ECG PREVIOUS TRACING : 07/15/2017 12.17 Compared to prior tracing no significant change DOCTOR: Arian Mercedes Interpretating Date/Time 07/24/2017 23:23:27
[2017-07-24] MEDS: MELATONIN 5 MG TAB PO SCH (23:59)
[2017-07-25] VITALS (8 sets, daily range): BP systolic 116–138; BP diastolic 68–77; PULSE 55–75; RESP 16–18; TEMP 97.6–98.3; O2SAT 95–96
[2017-07-25 01:40] LABS: CREATINE KINASE 32 U/L (26-192)
[2017-07-25 04:53] LABS: BLOOD, URINE NEG (NEG); COMMENT (UR) CULT NOT INDICATED; CULTURE IF INDICATED CULT NOT INDICATED; GLUCOSE,URINE NEG (NEG); KETONE, URINE NEG (NEG); MUCUS URINE FEW /lpf (OCC); NITRITE,URINE NEG (NEG); SQUAMOUS EPITHELIAL CELL URINE 2 /hpf (0-5); URINE COLOR YELLOW (YELLW/STRAW)
[2017-07-25 06:09] LABS: AUTOMATED NEUTROPHIL # 2.8 TH/MM3 (1.8-7.7); BASOPHIL % 0.6 % (0.0-2.0); EOSINOPHIL # 0.1 TH/MM3 (0-0.4); EOSINOPHIL % 1.1 % (0.0-4.0); HEMATOCRIT 38.6 % (35.0-46.0); HEMO FLAGS DIFF FINAL; LYMPHOCYTE # 2.9 TH/MM3 (1.0-4.8); MEAN CELL VOLUME 91.8 FL (80.0-100.0); MEAN CORPUSCULAR HEMOGLOBIN 31.3 PG (27.0-34.0); MEAN CORPUSCULAR HGB CONC 34.1 % (32.0-36.0); MONO % 5.5 % (0.0-8.0); NEUT % 45.8 % (16.0-70.0); PLATELET COUNT 188 TH/MM3 (150-450); RED BLOOD COUNT 4.21 MIL/MM3 (4.00-5.30); RED CELL DISTRIBUTION WIDTH 14.4 % (11.6-17.2); WHITE BLOOD COUNT 6.1 TH/MM3 (4.0-11.0)
[2017-07-25] MEDS: LEVOTHYROXINE SODIUM 75 MCG TAB PO SCH (06:10)
[2017-07-25 06:39] LABS: ALT (GPT) 25 U/L (10-53); ANION GAP 6 MEQ/L (5-15); AST (GOT) 13 U/L (15-37); BICARBONATE 26.8 MEQ/L (21.0-32.0); BLOOD UREA NITROGEN 10 MG/DL (7-18); CHLORIDE 106 MEQ/L (98-107); GLOMERULAR FILTRATION RATE 91 ML/MIN (>89); POTASSIUM 3.6 MEQ/L (3.5-5.1); SODIUM (NA) 139 MEQ/L (136-145)
[2017-07-25 06:49] LABS: ALKALINE PHOSPHATASE 45 U/L (45-117); HDL CHOLESTEROL 46.4 MG/DL (40.0-60.0); LDL CHOLESTEROL 82 MG/DL (0-99); TOTAL BILIRUBIN ADULT 0.3 MG/DL (0.2-1.0)
[2017-07-25 06:55] LABS: CREATINE KINASE 30 U/L (26-192)
[2017-07-25] MEDS: ACETAMINOPHEN/HYDROcodone 325 MG/7.5 MG TAB PO PRN ×2 (08:36→16:47)
[2017-07-25] MEDS: DOCUSATE SODIUM 50 MG/SENNA 8.6 MG TAB PO SCH ×2 (08:36→21:37)
[2017-07-25] MEDS: SODIUM CHLORIDE 0.9% FLUSH 10 ML FLUSH IV FLUSH SCH ×2 (08:36→21:41)
[2017-07-25] MEDS: HEPARIN SODIUM - SQ 10,000 UNITS/ML VIAL SQ SCH ×2 (08:37→21:40)
[2017-07-25] MEDS ORDERED: DILTIAZEM-CD 120 MG CAP ER PO SCH (09:00)
[2017-07-25] MEDS ORDERED: ASPIRIN 325 MG TAB PO SCH (09:00)
[2017-07-25] MEDS ORDERED: PANTOPRAZOLE SOD 20 MG DELAYED RELEASE TAB PO SCH (09:00)
[2017-07-25 11:04] LABS: HEMOGLOBIN A1a 1.3 %; HEMOGLOBIN A1b 1.8 %; HEMOGLOBIN Ao 85.4 %; HEMOGLOBIN LA1C 1.9 %; HEMOGLOBIN P3 3.4 %
--- NOTE | 2017-07-25 11:20 | RADRPT ---
EXAM DATE/TIME: 07/25/2017 09:00 [facility] COMPARISON: MRI BRAIN W/O CONTRAST, July 25, 2017, 9:00. INDICATIONS : Left sided weakness. Intermittent. MEDICAL HISTORY : Cardiovascular disease SURGICAL HISTORY : Cholecystectomy. Tubal ligation. Hysterectomy. ENCOUNTER: Initial ACUITY: 1 week PAIN SCORE: 0/10 LOCATION: cranial Please note a normal MRA of the brain does not entirely exclude the possibility of a small aneurysm, nor the possibility of distal intracranial vessel disease. TECHNIQUE: 3D time of flight MRA was performed. Source images, multiplanar STS MIP, and 3D volume MIP reconstru ctions were reviewed. FINDINGS: There is excellent visualization of the major intracranial arteries out to the second-order branch ve ssels. There is no evidence for aneurysm, vessel truncation or stenosis, and no evidence for vascula r malformation. Flow is seen in the anterior communicating artery and bilateral PCOM. CONCLUSION: 1. No evidence of vessel truncation or aneurysm. 2. Complete burns paiute of [place]ino[place]. Cam Bird MD on July 25, 2017 at 11:14 Board Certified Radiologist. This report was verified electronically.
--- NOTE | 2017-07-25 11:21 | RADRPT ---
EXAM DATE/TIME: 07/25/2017 09:00 [facility] COMPARISON: No previous studies available for comparison. INDICATIONS : Left sided weakness. Intermittent. MEDICAL HISTORY : Cardiovascular disease SURGICAL HISTORY : Hysterectomy. Cholecystectomy. Tubal ligation. ENCOUNTER: Initial ACUITY: 1 week PAIN SCORE: 0/10 LOCATION: cranial TECHNIQUE: Multiplanar, multisequence MRI of the brain was performed without contrast. FINDINGS: CEREBRUM: The ventricles are normal for age. No evidence of midline shift, mass lesion, hemorrhage or acute in farction. No extraaxial fluid collections are seen. The pituitary gland and suprasellar cistern are normal in configuration. WHITE MATTER: No significant signal abnormalities are seen in the white matter. POSTERIOR FOSSA: The cerebellum and brainstem are intact. The 4th ventricle is midline. The cerebellopontine angle is unremarkable. The cerebellar tonsils are normal in position. DIFFUSION IMAGING: No focal areas of restricted diffusion are seen. No evidence of acute infarction. EXTRACRANIAL: The visualized portions of the orbits and paranasal sinuses are unremarkable. CONCLUSION: Normal noncontrast MRI of the brain. Cam Bird MD on July 25, 2017 at 11:18 Board Certified Radiologist. This report was verified electronically.
[2017-07-25] MEDS: TOPIRAMATE 25 MG TAB PO SCH ×2 (13:32→21:37)
--- NOTE | 2017-07-25 13:33 | MB ---
cc: NEW LEE M.D. DATE OF CONSULTATION: 07/25/2017. REASON FOR CONSULTATION: Hemiplegic migraine. HISTORY OF PRESENT ILLNESS: Ms. Cabrera is a very nice 42-year-old woman who has a long history of migraine headaches. She also has a history of intermittent chest pain. She states she had a cardiac catheterization in the past and was diagnosed as having coronary spasm. She takes diltiazem for that. She is now admitted with chest pain but states a week ago she developed severe headache and a throbbing, pounding left-sided headache with associated tingling of the left face and left arm and weakness in the left arm and some slowing of her speech. In addition, her vision was blurred. She came to the emergency room. CT brain negative. The neurologic symptoms have subsided but she still has some residual numbness of the left mandibular area and down the left arm with neck pain. The numbness did not affect the leg. PAST MEDICAL HISTORY: 1. She has a history of coronary spasm and chest pain. 2. History of migraine headaches. 3. History of fatty liver. 4. Hypercholesterolemia. 5. Recurrent chest pain. 6. Hypothyroidism. 7. Tubal ligation. 8. Multiple laparoscopies. 9. Hysterectomy in 2002. She still has one ovary intact, which is fragmented. 10. Cholecystectomy. CURRENT MEDICATIONS: 1. Aspirin 325 milligrams daily. 2. Michelle-Colace. 3. Diltiazem 120 milligrams daily. 4. Protonix 20 milligrams daily. 5. Synthroid 75 micrograms daily. 6. Elavil 10 milligrams at bedtime. 7. Melatonin. 8. Hydrocodone as needed. 9. Morphine sulfate. 10. Nitroglycerin. 11. Tylenol. 12. Zofran. 13. Narcan as needed. 14. Dulcolax PRN. NEUROLOGICAL EXAMINATION: VITAL SIGNS: Blood pressure is 119/73, pulse 57 and regular, respirations 16, temperature 97.6 degrees. HIGHER CORTICAL FUNCTIONS: Normal. CRANIAL NERVES: Cranial nerves II through XII are normal in detail. MOTOR EXAM: Motor exam shows 5/5 strength of all groups in the upper and lower extremities. There is no drift. Fine motor skills are normal. SENSORY EXAM: Intact. REFLEXES: Symmetric. IMAGING STUDIES: MRI of the brain is within normal limits. MRA of the brain is normal. Carotid ultrasound is normal. EKGS: EKG is normal sinus rhythm. LABORATORY DATA: The white count is 6100, hemoglobin 13.2, hematocrit 38.6% platelet count 188,000. Sodium is 139, potassium 3.6, chloride 106, carbon dioxide is 26.8, the BUN is 10, creatinine 0.7, GFR 91, glucose 97, cholesterol 179, triglycerides 253, LDL 82. PT 10.2. INR 0.9. APTT 23.3. 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 With the persistent neck pain and left arm numbness, rule out cervical radiculopathy. RECOMMENDATIONS: 1. I would like to obtain an MRI of the cervical spine to rule out cervical spondylosis with radiculopathy. 2. Echocardiogram. 3. Consider a transesophageal echocardiogram, which could be considered as an outpatient by her mobile paint specialist, Dr. Merritt, if she thinks this is worth pursuing to rule out PFO. 4. Also check labs to rule out hypercoagulable state. 5. Continue aspirin 325 milligrams daily. 6. Would also start Topamax 25 milligrams twice a day for migraine prophylaxis. 7. The patient was told she should avoid triptans as well. 8. MD CANDACE Figueroa/PATRICIA /12:43 PM /1:29 PM
--- NOTE | 2017-07-25 13:35 | HHI.FPPN ---
Subjective Remarks Mrs. Cabrera was afebrile with stable vital signs overnight. Patient reports that she still has left facial and left upper extremity numbness/tingling as well as mild left-sided chest pain. Patient does not report headache at this time. Patient reviewed her history prior to hospitalization; patient is had history of chronic headaches previously diagnosed as migrainous (starting unilaterally but becoming bilateral; sometimes associated with photophobia or nausea) but that her headache which she experienced last week was different and was "pulsing " and/or "stabbing" in nature. Patient also reports family history of syringomyelia. Headache was also associated with arm weakness. Patient states that her recent chest pain was different in that she experienced previously; she reports prior history of Prinzmetal's angina. She described recent chest pain as crushing/sharp. Patient states that pain improved after morphine in ED ; patient had received ~4 doses of nitroglycerin due to chest pain. (Konrad Monge MD, R3) Objective Vitals Vital Signs Date Time Temp Pulse Resp B/P (MAP) Pulse Ox O2 Delivery O2 Flow Rate FiO2 07/25/17 12:00 97.7 58 16 138/71 (93) 96 07/25/17 10:19 55 07/25/17 08:00 97.6 57 16 119/73 (88) 96 07/25/17 05:34 97.7 66 18 132/68 (89) 95 07/25/17 01:47 98.0 75 18 129/77 (94) 95 07/24/17 22:22 81 18 111/69 (83) 96 07/24/17 20:51 74 18 138/88 (105) 97 Room Air 07/24/17 19:04 81 18 131/84 (100) 97 Room Air 07/24/17 18:33 16 98 Room Air 07/24/17 18:15 97.8 66 20 127/81 (96) 97 (Konrad Monge MD, R3) Result Diagram: 07/25/17 0540 07/25/17 0540 Imaging Last Impressions Head Magnetic Resonance Angiography 07/25/17 0000 Signed Impressions: Service Date/Time: Tuesday, July 25, 2017 09:00 - CONCLUSION: 1. No evidence of vessel truncation or aneurysm. 2. Complete [place]. Cam Bird MD Brain MRI 07/25/17 0000 Signed Impressions: Service Date/Time: Tuesday, July 25, 2017 09:00 - CONCLUSION: Normal noncontrast MRI of the brain. Cam Bird MD Chest X-Ray 07/24/17 1812 Signed Impressions: Service Date/Time: Monday, July 24, 2017 18:21 - CONCLUSION: The lungs are clear. Cam Bird MD Carotid Artery Ultrasound 07/24/17 0000 Signed Impressions: Service Date/Time: Monday, July 24, 2017 22:06 - CONCLUSION: Normal hemodynamic profile both carotids. Cam Bird MD Objective Remarks GENERAL: NAD SKIN: Warm and dry. No rashes visible EYES: EOM grossly intact NECK: No pain to palpation of cervical vertebrae CARDIOVASCULAR: Regular rate and rhythm. No murmurs. Normal peripheral perfusion RESPIRATORY: CTAB; normal rate GASTROINTESTINAL: No pain to palpation; normal BS MUSCULOSKELETAL: Extremities without edema. Grossly normal motor function and ROM NEUROLOGICAL: Awake and alert. CN grossly intact. Visual acuity grossly normal. Decreased sensation to light touch on dorsal aspect of L arm extending to L dorsal hand but not including dorsum of hand or fingers. Also, alstered sensation over L lateral mandibular area. Motor function grossly normal. Normal speech. PSYCHIATRIC: Appropriate mood and affect; insight and judgment normal. (Konrad Monge MD, R3) A/P Assessment and Plan 42 year old female with coronary artery vasospasm and migraines who presents with chest pain and non-specific neurologic symptoms. Patient admitted for observation, further cardiac studies and neurologic work-up: (Konrad Monge MD, R3) Attending Attestation Patient seen and examined. Case reviewed and discussed with the resident team. Agree with plan of care as discussed with me and documented in the resident note. Unusual situation where she has both cardiac spasms and complicated migraines. This am she had pain in her left jaw and down her arm on the left. She will have further testing per Neurology. Appreciate their help with preventing further migraines and subsequent problems. (Pratibha Lockhart MD) Problem List: (1) Chest pain ICD Codes: R07.9 - Chest pain Status: Acute Plan: Impression: Patient has Prinzmetal's angina hx. Ear Flap Binder is Dr. Naomi Merritt. Presenting with chest pain which improved with nitroglycerin and morphine. Initial studies including cardiac enzymes and EKG unremarkable. She reports having negative cardiac catheterization in 2014. -ACS rule-out -Troponin, CKMB x3 wnl -EKG x3 without ST changes -Pain control with Tylenol 650mg q4hr PRN pain 1-4, [place] 7.5mg-325mg q6hr PRN pain 5-7, morphine 2mg IV PRN pain 8-10, nitroglycerin 0.4mg SL q5min PRN chest pain -Continue Cardizem ER 120mg daily home dose -Continue aspirin 325 mg daily -Will check Lipid profile -Cardiology consult -Stress test planned for 07/26 (2) Neurologic abnormality ICD Codes: R29.818 - Other symptoms and signs involving the nervous system Status: Acute Plan: Patient reports transient unilateral weakness for which she was seen in ED last week. Weakness resolved but paresthesia persists. Neuro exam only notable for decreased sensation. Patient has normal strength. Visual acuity grossly normal. Suspicion is high for complex migraine. Carotid US 07/24- wnl MRI brain- wnl MRA brain- wnl -Continue neuro checks -Neurology consulted -2D echo ordered -Hypercoagulability labs ordered -MRI cervical spine ordered -Patient started on Topiramate -Risk stratify for atherosclerotic disease with lipid profile, A1C -PT consulted -OT consulted -Headache treatment -Hold home Fiorinal (pt has not used it in >1 week) -Continue amitriptyline at 10mg hs home dose -Topiramate per Neurology (3) Migraine ICD Codes: G43.909 - Migraine, unspecified, not intractable, without status migrainosus Status: Chronic Plan: Currently without any headache, and has not had a headache in the last 24 hours. Not taking Fiorinal over 1 week. * Pain control with as needed Tylenol, [place], morphine * Neurologic consult as noted elsewhere * Topiramate 25mg BID (4) Hypothyroidism ICD Codes: E03.9 - Hypothyroidism Status: Chronic Plan: Impression: TSH on admission 4.04 (mild elevation but <5 with acute stressors) -Continue home dose levothyroxine 75mcg daily (5) Fluids/Electrolytes/Nutrition/Prophylaxis Status: Acute Plan: Fluids: tolerating PO Electrolytes: monitor and replete as needed Nutrition: heart-healthy diet without caffeine DVT Prophylaxis: Early ambulation. Heparin 5000U subQ q12hr/Bilateral SCDs GI Prophylaxis: On omeprazole 20 mg daily at home, will continue PRN anti-HTN: Clonidine 0.1mg PO PRN for SBP > 180/ and/or DBP > 100 Sleep: On melatonin 5 mg nightly, will continue Disposition: Likely 24hr observation and workup, possibly discharge 07/25 (Konrad Monge MD, R3) Problem Qualifiers (1) Chest pain: Qualified Codes: R07.9 - Chest pain, unspecified Konrad Monge MD, R3 Jul 25, 2017 13:35 Pratibha Lockhart MD Jul 25, 2017 17:32
--- NOTE | 2017-07-25 16:42 | RADRPT ---
EXAM DATE/TIME: 07/25/2017 15:17 [facility] COMPARISON: No previous studies available for comparison. INDICATIONS : Intermittent left side weakness. MEDICAL HISTORY : Cardiovascular disease SURGICAL HISTORY : Hysterectomy. Cholecystectomy. Tubal ligation. ENCOUNTER: Initial ACUITY: 1 day PAIN SCORE: 0/10 LOCATION: Paraspinal TECHNIQUE: Multiplanar, multisequence MRI examination of the cervical spine was performed. FINDINGS: VERTEBRAE: Normal vertebral body height. Homogeneous marrow signal. ALIGNMENT: No evidence of subluxation. CORD: Normal configuration and signal. POST FOSSA: The cerebellar tonsils are normal in position. C2-C3: The thecal sac has a normal configuration. There is no evidence of disc herniation or spinal canal s tenosis. The neural foramina are patent bilaterally. C3-C4: The thecal sac has a normal configuration. There is no evidence of disc herniation or spinal canal s tenosis. The neural foramina are patent bilaterally. C4-C5: Broad-based disc bulge without stenosis. C5-C6: Broad-based mild disc protrusion with mild encroachment on the anterior thecal sac, lateral recesses and neural foramina bilaterally. C6-C7: Broad-based mild disc protrusion, worse on the left side with mild lateral recess stenosis and left g reater than right foraminal encroachment. C7-T1: The thecal sac has a normal configuration. There is no evidence of disc herniation or spinal canal s tenosis. The neural foramina are patent bilaterally. CONCLUSION: 1. At C6-7 there is a broad-based disc protrusion, worse on the left side with mild left lateral rece ss and foraminal stenosis. 2. At C4-5-6 broad-based posterior disc bulges or mild protrusions result in mild encroachment on the lateral recesses. Rei Lambert MD on July 25, 2017 at 16:36 Board Certified Radiologist. This report was verified electronically.
--- NOTE | 2017-07-25 18:11 | MB ---
cc: MIREILLE BRANCH DO DATE OF CONSULTATION: 07/25/2017. REASON FOR CONSULTATION: Chest pain. HISTORY OF PRESENT ILLNESS: Sofía Tran is a pleasant 42-year-old female who presented to [facility] Emergency Room on July 24, 2017 due to chest pain. She was sitting at her desk writing notes and started experiencing sharp stabbing pain across the center of her chest and into her back and left shoulder. She describes it as a mix of sharp pressure and crushing pain. She was nauseous but without vomiting. She called for her to give her a nitroglycerin which helped and then she took a second nitroglycerin, which took the pain away. She previously had similar episodes, although not as severe, and was told she had coronary artery spasm. Apparently the patient had neurological symptoms last week. She was driving home from a friend's house and began to feel confused with numbness and tingling on her left side. Apparently these symptoms have subsided. There is a concern for complex migraine, and she has since been seen by neurology. PAST MEDICAL HISTORY: 1. Coronary artery spasm. 2. Hypothyroidism. 3. Fatty liver disease. 4. Visceral hypersensitivity. 5. Borderline high cholesterol. 6. History of migraine headaches. PAST SURGICAL HISTORY: 1. Cardiac catheterization (2014) with normal coronary arteries. 2. Tubal ligation (1995). 3. Multiple laparoscopies ([id number]). 4. Partial hysterectomy (2002). 5. Cholecystectomy (2015). ALLERGIES: NO KNOWN DRUG ALLERGIES. MEDICATIONS: 1. Nitro sublingual as needed for chest pain. 2. Cartia XT 120 milligrams daily. 3. Fiorinal every 6 hours as needed for headache. 4. Amitriptyline 10 milligrams every night. 5. Omeprazole 20 milligrams daily. 6. Synthroid 75 micrograms daily. 7. Melatonin 5 milligrams every night. FAMILY HISTORY: Father at the age of 59 from an unknown cause as the patient was not close to him, she is unsure. Mother is 63 and healthy. SOCIAL HISTORY: The patient previously smoked a half-pack of cigarettes a day until the age of 28 and then quit. Denies alcohol or drug abuse. REVIEW OF SYSTEMS Fourteen systems were reviewed including osteopathic with pertinent positives and negatives as above; otherwise negative. PHYSICAL EXAMINATION: VITAL SIGNS: Temperature 97.6, heart rate 57, blood pressure 119/73, respirations 16, pulse ox 96% on room air. GENERAL: In general, the patient appears well in no acute stress. Alert awake and oriented x3. HEAD, EYES, EARS, NOSE, THROAT: Extraocular muscles intact. Mucous membranes moist. NECK: Neck is supple. No JVD at 45 degrees. No carotid bruits heard bilaterally. Carotid upstroke is brisk in nature. HEART: Heart is regular rate and rhythm. Positive first and second heart sounds with no murmurs, gallops or rubs. LUNGS: Clear to auscultation bilaterally. No wheezes, rales or rhonchi. ABDOMEN: Soft, nontender, nondistended. No organomegaly noted. EXTREMITIES: Show no clubbing, cyanosis or edema. Femoral and distal pulses intact bilaterally. NEUROLOGIC: No focal deficits. SKIN: Warm, dry and intact. OSTEOPATHIC: Osteopathically, no kyphoscoliosis, lordosis or paraspinal tender points. LABORATORY FINDINGS: Hemoglobin 13.2, hematocrit 38.6, platelets 188. Potassium 3.6, BUN 10, creatinine 0.7. Troponin negative x3. Total cholesterol 179, LDL 82, HDL 46.4, triglycerides 253. Electrocardiogram (July 25, 2017 at 0735): Sinus bradycardia, no acute S-T-T wave changes. IMPRESSIONS: 1. Chest pain. 2. History of coronary spasm. 3. Neurological issues felt to be due to migraine. 4. History of migraines. 5. Hypothyroidism. RECOMMENDATIONS: 1. Ms. Cabrera presented with chest pain. Overall her enzymes have been negative and EKG shows no acute S-T-T wave changes. 2. We will have her undergo a stress test in the morning to rule out significant coronary artery disease. 2. She sees Dr. Merritt in the outpatient setting and I call their service to inform them that she is here. If she does have a positive stress test, I will discuss this with Dr. Merritt tomorrow to see how she would like to proceed if she needs a cardiac catheterization. Further recommendations will be made based on the hospital course. Thank you for allowing me to see Sofía Cabrera. If there are any questions, please do not hesitate to call. Vincent G. Branch DO VGP/JCC /5:26 PM /6:04 PM MTDD
--- NOTE | 2017-07-25 18:20 | EKG ---
Date Performed: 07/25/2017 Time Performed: 07:35:02 PTAGE: 42 years EKG: SINUS BRADYCARDIA BORDERLINE ECG PREVIOUS TRACING : 07/24/2017 18.26 Compared to prior tracing no significant change DOCTOR: Arian Mercedes Interpretating Date/Time 07/25/2017 18:18:37
[2017-07-25] MEDS: MELATONIN 5 MG TAB PO SCH (21:37)
[2017-07-25] MEDS: AMITRIPTYLINE HCL 10 MG TAB PO SCH ×2 (21:37)
[2017-07-25 22:01] LABS: BETA HCG QUANT LESS THAN 1 MIU/ML (0-5)
[2017-07-26] VITALS: BP 110/66; PULSE 64; RESP 17; TEMP 98.1; O2SAT 95
--- NOTE | 2017-07-26 00:52 | EKG ---
Date Performed: 07/25/2017 Time Performed: 01:19:22 PTAGE: 42 years EKG: Sinus rhythm Compared to the PREVIOUS TRACING from 07/24/17, no significant change DOCTOR: Arian Mercedes Interpretating Date/Time 07/26/2017 00:50:38
[2017-07-26 04:00] VITALS: BP 107/64; PULSE 62; RESP 16; TEMP 97.6; O2SAT 96
[2017-07-26] MEDS: LEVOTHYROXINE SODIUM 75 MCG TAB PO SCH (06:57)
[2017-07-26 07:00] VITALS: PULSE 66
[2017-07-26 07:35] VITALS: BP 102/74; PULSE 70; RESP 18; TEMP 98; O2SAT 98
[2017-07-26 07:55] LABS: BICARBONATE 26.8 MEQ/L (21.0-32.0); POTASSIUM 3.5 MEQ/L (3.5-5.1)
[2017-07-26] MEDS ORDERED: REGADENOSON INJ 0.4 MG/5 ML SYR ONE (10:46)
[2017-07-26 11:52] VITALS: BP 136/79; PULSE 78; RESP 18; TEMP 98.1; O2SAT 100
--- NOTE | 2017-07-26 12:30 | RADRPT ---
EXAM DATE/TIME: 07/26/2017 10:22 [facility] COMPARISON: No previous studies available for comparison. INDICATIONS : Substernal chest pain radiating to the left shoulder with nausea. Angina. DOSE: 25.9 mCi Tc99m Myoview at stress. 8.7 mCi Tc99m Myoview at rest. 0.4 mg Lexiscan STRESS SYMPTOMS: None. EJECTION FRACTION: > 70% MEDICAL HISTORY : Hypercholesterolemia. Stroke SURGICAL HISTORY : Hysterectomy. Cholecystectomy. Tubal ligation. ENCOUNTER: Initial ACUITY: 1 day PAIN SCALE: 8/10 LOCATION: Substernal chest TECHNIQUE: The patient underwent pharmacologic stress with infusion of prescribed dose. Continuous ECG tracing was monitored during stress. Gated SPECT imaging was performed after stress and conventional SPECT i maging was performed at rest. The examination was performed on a SPECT/CT scanner, both attenuation and non-corrected datasets were reviewed. FINDINGS: DISTRIBUTION: The maximum perfused segment at stress is in the posterobasal wall. PERFUSION STUDY: The pattern of perfusion at stress is within normal limits. GATED STUDY: There is intact wall motion and thickening without hypokinetic or dyskinetic segments. CONCLUSION: Normal examination. RISK CATEGORY: Low (<1% Annual Mortality Rate) Tera Douglas MD on July 26, 2017 at 12:26 Board Certified Radiologist. This report was verified electronically.
--- NOTE | 2017-07-26 13:41 | HHI.FPPN ---
Subjective Remarks Patient was seen and evaluated this morning. Patient denies chest pain other than baseline pain, heart palpitations, shortness of breath, nausea/vomiting, diarrhea and constipation. She continues to experience tingling along her left arm. She also reports midline cervical neck pain. All questions were answered. (Amaris Sofia MD R1) Objective Vitals Vital Signs Date Time Temp Pulse Resp B/P (MAP) Pulse Ox O2 Delivery O2 Flow Rate FiO2 07/26/17 11:52 98.1 78 18 136/79 (98) 100 07/26/17 07:35 98.0 70 18 102/74 (83) 98 07/26/17 04:00 97.6 62 16 107/64 (78) 96 07/26/17 00:00 98.1 64 17 110/66 (81) 95 07/25/17 20:47 98.3 70 18 118/75 (89) 95 07/25/17 20:00 67 07/25/17 16:00 98.1 70 16 116/74 (88) 96 I/O 07/25/17 07/25/17 07/25/17 07/26/17 07/26/17 07/26/17 07:00 15:00 23:00 07:00 15:00 23:00 Intake Total 480 ml 1080 ml Balance 480 ml 1080 ml Intake Oral 480 ml 1080 ml # Voids 4 # Bowel Movements 0 (Amaris Sofia MD R1) Result Diagram: 07/25/17 0540 07/26/17 0609 Imaging Last Impressions Head Magnetic Resonance Angiography 07/25/17 0000 Signed Impressions: Service Date/Time: Tuesday, July 25, 2017 09:00 - CONCLUSION: 1. No evidence of vessel truncation or aneurysm. 2. Complete [place] of [place]. Cam Bird MD Cervical Spine MRI 07/25/17 0000 Signed Impressions: Service Date/Time: Tuesday, July 25, 2017 15:17 - CONCLUSION: 1. At C6-7 there is a broad-based disc protrusion, worse on the left side with mild left lateral recess and foraminal stenosis. 2. At C4-5-6 broad-based posterior disc bulges or mild protrusions result in mild encroachment on the lateral recesses. Rei Lambert MD Brain MRI 07/25/17 0000 Signed Impressions: Service Date/Time: Tuesday, July 25, 2017 09:00 - CONCLUSION: Normal noncontrast MRI of the brain. Cam Bird MD Chest X-Ray 07/24/17 1812 Signed Impressions: Service Date/Time: Monday, July 24, 2017 18:21 - CONCLUSION: The lungs are clear. Cam Bird MD Carotid Artery Ultrasound 07/24/17 0000 Signed Impressions: Service Date/Time: Monday, July 24, 2017 22:06 - CONCLUSION: Normal hemodynamic profile both carotids. Cam Bird MD Objective Remarks GENERAL: Patient sitting in chair in no acute distress. SKIN: Warm and dry. No rashes visible. EYES: Extraocular motion grossly intact. NECK: No pain to palpation of cervical vertebrae. CARDIOVASCULAR: Regular rate and rhythm. No murmurs. Normal peripheral perfusion. RESPIRATORY: Clear to auscultation bilaterally. GASTROINTESTINAL: Normal bowel sounds. Nontender, nondistended abdomen. MUSCULOSKELETAL: Extremities without edema. Grossly normal motor function and ROM. NEUROLOGICAL: Awake and alert. CN grossly intact. PSYCHIATRIC: Appropriate mood and affect; insight and judgment normal. Medications and IVs Current Medications Medications (Trade) Dose Ordered Sig/Jcarlos Route Start Time Stop Time Status Last Admin (NS Flush) 2 ml UNSCH PRN IV FLUSH 07/24/17 21:15 (NS Flush) 2 ml BID IV FLUSH 07/25/17 09:00 07/25/17 21:41 (Tylenol) 650 mg Q4H PRN PO 07/24/17 21:15 (Zofran Inj) 4 mg Q6H PRN IVP 07/24/17 21:15 (Heparin Inj) 5,000 units Q12H SQ 07/24/17 21:15 07/25/17 21:40 (Narcan Inj) 0.4 mg UNSCH PRN IV PUSH 07/24/17 21:15 (Michelle-Colace) 1 tab BID PO 07/25/17 09:00 07/25/17 21:37 (Milk Of Magnesia Liq) 30 ml Q12H PRN PO 07/24/17 21:15 (Senokot) 17.2 mg Q12H PRN PO 07/24/17 21:15 (Dulcolax Supp) 10 mg DAILY PRN RECTAL 07/24/17 21:15 (Lactulose Liq) 30 ml DAILY PRN PO 07/24/17 21:15 (Vasotec Inj) 1.25 mg Q4H PRN IV PUSH 07/24/17 21:15 ([place] 7.5-325 Mg) 1 tab Q4H PRN PO 07/24/17 22:00 07/25/17 16:47 (Morphine Inj) 2 mg Q4H PRN IV PUSH 07/24/17 22:00 (Nitrostat Sl) 0.4 mg Q5M PRN SL 07/24/17 22:00 (Aspirin) 325 mg DAILY PO 07/25/17 09:00 07/25/17 08:35 (Elavil) 10 mg HS PO 07/24/17 22:15 07/25/17 21:37 (Cardizem Cd) 120 mg DAILY PO 07/25/17 09:00 07/25/17 08:39 (Synthroid) 75 mcg DAILY@0700 PO 07/25/17 07:00 07/26/17 06:57 (Melatonin) 5 mg HS PO 07/24/17 22:15 07/25/17 21:37 (Protonix) 20 mg DAILY PO 07/25/17 09:00 07/25/17 08:35 (Topamax) 25 mg Q12HR PO 07/25/17 12:45 07/25/17 21:37 (Amaris Sofia MD R1) A/P Assessment and Plan 42 year old female with coronary artery vasospasm and migraines who presents with chest pain and non-specific neurologic symptoms. Patient admitted for observation, further cardiac studies and neurologic work-up. (Amaris Sofia MD R1) Attending Attestation Patient seen and examined. Case reviewed and discussed with the resident team. Agree with plan of care as discussed with me and documented in the resident note. she is stable and improving. she will follow up with Neuro and per Cardiology can get an echo as an outpt (Pratibha Lockhart MD) Problem List: (1) Chest pain ICD Codes: R07.9 - Chest pain Status: Acute Plan: Impression: Patient has history of Prinzmetal's angina. Channel Manager is Dr. Naomi Merritt. Presenting with chest pain, which improved with nitroglycerin and morphine. Initial studies including cardiac enzymes and EKG unremarkable. She reports having negative cardiac catheterization in 2015. Stress test negative today. * ACS rule-out: * Troponin, CKMB x3 wnl * EKG x3 without ST changes * Pain control with Tylenol 650mg q4hr PRN pain 1-4, [place] 7.5mg-325mg q6hr PRN pain 5-7, morphine 2mg IV PRN pain 8-10, nitroglycerin 0.4mg SL q5min PRN chest pain while in the hospital. Discharge on Nitroglycerin 0.3mg PRN chest pain. * Continue Diltiazem ER 120mg daily. * Cardiology cleared patient for discharge with ECHO as outpatient. (2) Neurologic abnormality ICD Codes: R29.818 - Other symptoms and signs involving the nervous system Status: Acute Plan: Patient reports transient unilateral weakness for which she was seen in ED last week. Weakness resolved but paresthesia persists. Neuro exam only notable for decreased sensation. Patient has normal strength. Visual acuity grossly normal. Suspicion is high for complex migraine. Carotid US: Normal hemodynamic profile both carotids. Cervical spine MRI: At C6-7 there is a broad-based disc protrusion, worse on the left side with mild left lateral recess and foraminal stenosis; at C4-5-6 broad-based posterior disc bulges or mild protrusions resulting in mild encroachment of the lateral recesses. MRI brain: Normal noncontrast MRI of the brain. MRA brain: No evidence of vessel truncation or aneurysm, complete osage [place]. * Continue neuro checks. * Neurology consulted. * See Headache management below. * Cleared for discharge today. Recommended outpatient physical therapy for cervical spondylosis. * Two week follow-up. (3) Migraine ICD Codes: G43.909 - Migraine, unspecified, not intractable, without status migrainosus Status: Chronic Plan: Currently without any headache. * Started Topamax 25mg BID - to be continued at discharge. (4) Hypothyroidism ICD Codes: E03.9 - Hypothyroidism Status: Chronic Plan: Impression: TSH on admission 4.04 (mild elevation but <5 with acute stressors) * Continue home dose levothyroxine 75mcg daily. (5) Fluids/Electrolytes/Nutrition/Prophylaxis Status: Acute Plan: Fluids: Tolerating PO Electrolytes: Monitor and replete as needed Nutrition: Regular diet DVT Prophylaxis: Early ambulation. Heparin 5000U subQ q12hr/Bilateral SCDs GI Prophylaxis: On omeprazole 20 mg daily at home, will continue PRN anti-HTN: Clonidine 0.1mg PO PRN for SBP > 180/ and/or DBP > 100 Sleep: On melatonin 5 mg nightly, will continue (Amaris Sofia MD R1) Problem Qualifiers (1) Chest pain: Qualified Codes: R07.9 - Chest pain, unspecified (2) Migraine: Qualified Codes: G43.909 - Migraine, unspecified, not intractable, without status migrainosus Amaris Sofia MD R1 Jul 26, 2017 13:41 Pratibha Lockhart MD Jul 27, 2017 15:46
--- NOTE | 2017-07-26 15:27 | HHI.PR ---
Review/Management Diagnosis Hemiplegic migraine--trial of topamax Cervical spondylosis with cervical radiculopathy--recommend out patient PT Plan continue topamax 25 mg bid outpatient physical therapy for cervical spondylosis ok from neuro standpoint to discharge when ok with medicine service. Please schedule follow up with me in 2 weeks in office Diagnosis/Plan: Subjective Subjective Comments No acute events reported still with tingling down left arm and left chin Active Medications Current Medications Medications (Trade) Dose Ordered Sig/Jcarlos Route Start Time Stop Time Status Last Admin (NS Flush) 2 ml UNSCH PRN IV FLUSH 07/24/17 21:15 (NS Flush) 2 ml BID IV FLUSH 07/25/17 09:00 07/25/17 21:41 (Tylenol) 650 mg Q4H PRN PO 07/24/17 21:15 (Zofran Inj) 4 mg Q6H PRN IVP 07/24/17 21:15 (Heparin Inj) 5,000 units Q12H SQ 07/24/17 21:15 07/25/17 21:40 (Narcan Inj) 0.4 mg UNSCH PRN IV PUSH 07/24/17 21:15 (Michelle-Colace) 1 tab BID PO 07/25/17 09:00 07/25/17 21:37 (Milk Of Magnesia Liq) 30 ml Q12H PRN PO 07/24/17 21:15 (Senokot) 17.2 mg Q12H PRN PO 07/24/17 21:15 (Dulcolax Supp) 10 mg DAILY PRN RECTAL 07/24/17 21:15 (Lactulose Liq) 30 ml DAILY PRN PO 07/24/17 21:15 (Vasotec Inj) 1.25 mg Q4H PRN IV PUSH 07/24/17 21:15 ([place] 7.5-325 Mg) 1 tab Q4H PRN PO 07/24/17 22:00 07/25/17 16:47 (Morphine Inj) 2 mg Q4H PRN IV PUSH 07/24/17 22:00 (Nitrostat Sl) 0.4 mg Q5M PRN SL 07/24/17 22:00 (Aspirin) 325 mg DAILY PO 07/25/17 09:00 07/25/17 08:35 (Elavil) 10 mg HS PO 07/24/17 22:15 07/25/17 21:37 (Cardizem Cd) 120 mg DAILY PO 07/25/17 09:00 07/25/17 08:39 (Synthroid) 75 mcg DAILY@0700 PO 07/25/17 07:00 07/26/17 06:57 (Melatonin) 5 mg HS PO 07/24/17 22:15 07/25/17 21:37 (Protonix) 20 mg DAILY PO 07/25/17 09:00 07/25/17 08:35 (Topamax) 25 mg Q12HR PO 07/25/17 12:45 07/25/17 21:37 Allergies Allergies Coded Allergies No Known Allergies (Unverified Allergy, Unknown, 07/24/17) Exam I&O / VS 07/26/17 07/26/17 07/27/17 15:00 23:00 07:00 # Voids 4 # Bowel Movements 1 Vital Signs Date Time Temp Pulse Resp B/P (MAP) Pulse Ox O2 Delivery O2 Flow Rate FiO2 07/26/17 11:52 98.1 78 18 136/79 (98) 100 07/26/17 07:35 98.0 70 18 102/74 (83) 98 07/26/17 07:00 66 07/26/17 04:00 97.6 62 16 107/64 (78) 96 07/26/17 00:00 98.1 64 17 110/66 (81) 95 07/25/17 20:47 98.3 70 18 118/75 (89) 95 07/25/17 20:00 67 07/25/17 16:00 98.1 70 16 116/74 (88) 96 Exam Comments alert and oriented, speech is normal Cn intact MOTOR 5/5 BUE and BLE. Objective Radiology Results MRI cervical spine-----spondylosis at C56 and C67 with neural foraminal encroachment. No spinal cord compression Micro and Labs Laboratory Tests Test 07/25/17 16:00 07/26/17 06:09 Erythrocyte Sedimentation Rate 3 Blood Urea Nitrogen 8 Creatinine 0.70 Random Glucose 98 Calcium Level 8.3 Sodium Level 139 Potassium Level 3.5 Chloride Level 106 Carbon Dioxide Level 26.8 Anion Gap 6 Estimat Glomerular Filtration Rate 91 Volodymyr Palacios PhD MD Jul 26, 2017 15:26
[2017-07-26 15:52] VITALS: BP 114/72; PULSE 84; RESP 18; TEMP 98.3; O2SAT 96
--- NOTE | 2017-07-26 16:20 | HHI.DCPOC ---
Discharge Care Plan Diagnosis: (1) Cervical spondylosis (2) Migraine (3) Chest pain Goals to Promote Your Health * To prevent worsening of your condition and complications * To maintain your health at the optimal level Directions to Meet Your Goals Take your medications as prescribed Follow your dietary instruction Follow activity as directed Keep your appointments as scheduled Take your immunizations and boosters as scheduled If your symptoms worsen call your PCP, if no PCP go to Urgent Care Center or Emergency Room Smoking is Dangerous to Your Health. Avoid second hand smoke Call the 24-hour hour crisis hotline for domestic abuse at Volodymyr Church MD, R3 Jul 26, 2017 16:20
--- NOTE | 2017-07-26 16:22 | PD.CARD.PN ---
Subjective Subjective Remarks No events overnight Feels well today Objective Medications Current Medications Medications (Trade) Dose Ordered Sig/Jcarlos Route Start Time Stop Time Status Last Admin (NS Flush) 2 ml UNSCH PRN IV FLUSH 07/24/17 21:15 (NS Flush) 2 ml BID IV FLUSH 07/25/17 09:00 07/25/17 21:41 (Tylenol) 650 mg Q4H PRN PO 07/24/17 21:15 (Zofran Inj) 4 mg Q6H PRN IVP 07/24/17 21:15 (Heparin Inj) 5,000 units Q12H SQ 07/24/17 21:15 07/25/17 21:40 (Narcan Inj) 0.4 mg UNSCH PRN IV PUSH 07/24/17 21:15 (Michelle-Colace) 1 tab BID PO 07/25/17 09:00 07/25/17 21:37 (Milk Of Magnesia Liq) 30 ml Q12H PRN PO 07/24/17 21:15 (Senokot) 17.2 mg Q12H PRN PO 07/24/17 21:15 (Dulcolax Supp) 10 mg DAILY PRN RECTAL 07/24/17 21:15 (Lactulose Liq) 30 ml DAILY PRN PO 07/24/17 21:15 (Vasotec Inj) 1.25 mg Q4H PRN IV PUSH 07/24/17 21:15 ([place] 7.5-325 Mg) 1 tab Q4H PRN PO 07/24/17 22:00 07/25/17 16:47 (Morphine Inj) 2 mg Q4H PRN IV PUSH 07/24/17 22:00 (Nitrostat Sl) 0.4 mg Q5M PRN SL 07/24/17 22:00 (Aspirin) 325 mg DAILY PO 07/25/17 09:00 07/25/17 08:35 (Elavil) 10 mg HS PO 07/24/17 22:15 07/25/17 21:37 (Cardizem Cd) 120 mg DAILY PO 07/25/17 09:00 07/25/17 08:39 (Synthroid) 75 mcg DAILY@0700 PO 07/25/17 07:00 07/26/17 06:57 (Melatonin) 5 mg HS PO 07/24/17 22:15 07/25/17 21:37 (Protonix) 20 mg DAILY PO 07/25/17 09:00 07/25/17 08:35 (Topamax) 25 mg Q12HR PO 07/25/17 12:45 07/25/17 21:37 Vital Signs / I&O Vital Signs Date Time Temp Pulse Resp B/P (MAP) Pulse Ox O2 Delivery O2 Flow Rate FiO2 07/26/17 15:52 98.3 84 18 114/72 (86) 96 07/26/17 11:52 98.1 78 18 136/79 (98) 100 07/26/17 07:35 98.0 70 18 102/74 (83) 98 07/26/17 07:00 66 07/26/17 04:00 97.6 62 16 107/64 (78) 96 07/26/17 00:00 98.1 64 17 110/66 (81) 95 07/25/17 20:47 98.3 70 18 118/75 (89) 95 07/25/17 20:00 67 I/O 07/25/17 07/25/17 07/25/17 07/26/17 07/26/17 07/26/17 07:00 15:00 23:00 07:00 15:00 23:00 Intake Total 480 ml 1080 ml Balance 480 ml 1080 ml Intake Oral 480 ml 1080 ml # Voids 4 4 # Bowel Movements 0 1 Physical Exam GENERAL: NAD, AAOx3 SKIN: Warm and dry. HEAD: Atraumatic. Normocephalic. EYES: Pupils equal and round. No scleral icterus. No injection or drainage. ENT: No nasal bleeding or discharge. Mucous membranes pink and moist. NECK: Trachea midline. No JVD. CARDIOVASCULAR: Regular rate and rhythm. RESPIRATORY: No accessory muscle use. Clear to auscultation. Breath sounds equal bilaterally. GASTROINTESTINAL: Abdomen soft, non-tender, nondistended. Hepatic and splenic margins not palpable. MUSCULOSKELETAL: Extremities without clubbing, cyanosis, or edema. No obvious deformities. NEUROLOGICAL: Awake and alert. No obvious cranial nerve deficits. Motor grossly within normal limits. Five out of 5 muscle strength in the arms and legs. Normal speech. PSYCHIATRIC: Appropriate mood and affect; insight and judgment normal. Laboratory Laboratory Tests Test 07/26/17 06:09 Blood Urea Nitrogen 8 MG/DL Creatinine 0.70 MG/DL Random Glucose 98 MG/DL Calcium Level 8.3 MG/DL Sodium Level 139 MEQ/L Potassium Level 3.5 MEQ/L Chloride Level 106 MEQ/L Carbon Dioxide Level 26.8 MEQ/L Anion Gap 6 MEQ/L Estimat Glomerular Filtration Rate 91 ML/MIN Assessment and Plan Problem List: (1) Chest pain ICD Codes: R07.9 - Chest pain Status: Acute (2) Cervical spondylosis ICD Codes: M47.812 - Spondylosis without myelopathy or radiculopathy, cervical region (3) Neurologic abnormality ICD Codes: R29.818 - Other symptoms and signs involving the nervous system Status: Acute (4) Migraine ICD Codes: G43.909 - Migraine, unspecified, not intractable, without status migrainosus Status: Chronic Assessment and Plan 1) Stress test showing no ischemia Previous cardiac catheterization showing no significant disease 2) History of coronary spasm 3) Con't current medical therapy 4) Echo pending 5) Possible discharge home tomorrow for follow up with Dr. Naomi Merritt Problem Qualifiers (1) Chest pain: Qualified Codes: R07.9 - Chest pain, unspecified (2) Cervical spondylosis: Qualified Codes: M47.812 - Spondylosis without myelopathy or radiculopathy, cervical region Arian Mercedes DO Jul 26, 2017 16:22
[2017-07-26] MEDS ORDERED: TOPI25 PO (17:29)
--- NOTE | 2017-07-26 17:35 | ECHRPT ---
Indication: Transient cerebral ischemic attack, unspecified CONCLUSIONS The transthoracic study is normal by two-dimensional, color flow imaging and Doppler interrogation. BP: 102 / 74 HR: 70 Rhythm: MEASUREMENTS (Male / Female) Normal Values Technical Quality:Good 2D ECHO LV Diastolic Diameter PLAX 3.8 cm 4.2 - 5.9 / 3.9 - 5.3 cm LV Systolic Diameter PLAX 2.5 cm IVS Diastolic Thickness 1.2 cm 0.6 - 1.0 / 0.6 - 0.9 cm LVPW Diastolic Thickness 1.2 cm 0.6 - 1.0 / 0.6 - 0.9 cm LV Relative Wall Thickness 0.6 RV Internal Dim ED PLAX 2.4 cm M-MODE Aortic Root Diameter MM 3.1 cm LA Systolic Diameter MM 3.8 cm LA Ao Ratio MM 1.2 AV Cusp Separation MM 1.6 cm DOPPLER Mitral E Point Velocity 66.5 cm/s Mitral A Point Velocity 93.7 cm/s Mitral E to A Ratio 0.7 LV E' Lateral Velocity 10.2 cm/s Mitral E to LV E' Lateral Ratio 6.5 FINDINGS LEFT VENTRICLE Normal left ventricular size and wall thickness. The left ventricular systolic function is normal wi th an estimated ejection fraction in the range of 60-65%. Left ventricular diastolic function parameters a re normal. RIGHT VENTRICLE Normal right ventricular size and systolic function. LEFT ATRIUM The left atrial size is normal. RIGHT ATRIUM The right atrial size is normal. ATRIAL SEPTUM Normal atrial septal thickness without atrial level shunting by limited color doppler interrogation. AORTA The aortic root and proximal ascending aorta are not well visualized. MITRAL VALVE Structurally normal mitral valve. No mitral valve stenosis or regurgitation. AORTIC VALVE Trileaflet aortic valve. No aortic valve stenosis or regurgitation. TRICUSPID VALVE Structurally normal tricuspid valve. No tricuspid valve stenosis or regurgitation. PULMONARY VALVE The pulmonary valve is not well visualized. VESSELS The inferior vena cava was not well visualized. PERICARDIUM No pericardial effusion. Sharath Woods MD (Electronically Signed) Final Date:26 July 2017 17:34
[2017-07-28 03:51] LABS: THROMBIN TIME FOR LA ND sec (13-19)
--- NOTE | 2017-07-29 09:32 | HHI.DS ---
Discharge Summary Admission Date Jul 24, 2017 at 20:12 Discharge Date: Jul 26, 2017 Admitting Diagnosis Chest pain, neuro symptoms (1) Chest pain Diagnosis: Principal Plan: Impression: Patient has history of Prinzmetal's angina. Client Support Associate is Dr. Naomi Merritt. Presenting with chest pain, which improved with nitroglycerin and morphine. Initial studies including cardiac enzymes and EKG unremarkable. She reports having negative cardiac catheterization in 2014. Stress test negative today. * ACS rule-out: * Troponin, CKMB x3 wnl * EKG x3 without ST changes * Pain control with Tylenol 650mg q4hr PRN pain 1-4, [place] 7.5mg-325mg q6hr PRN pain 5-7, morphine 2mg IV PRN pain 8-10, nitroglycerin 0.4mg SL q5min PRN chest pain while in the hospital. Discharge on Nitroglycerin 0.3mg PRN chest pain. * Continue Diltiazem ER 120mg daily. * Cardiology cleared patient for discharge with ECHO as outpatient. ICD Codes: R07.9 - Chest pain Status: Acute (2) Neurologic abnormality Diagnosis: Principal Plan: Patient reports transient unilateral weakness for which she was seen in ED last week. Weakness resolved but paresthesia persists. Neuro exam only notable for decreased sensation. Patient has normal strength. Visual acuity grossly normal. Suspicion is high for complex migraine. Carotid US: Normal hemodynamic profile both carotids. Cervical spine MRI: At C6-7 there is a broad-based disc protrusion, worse on the left side with mild left lateral recess and foraminal stenosis; at C4-5-6 broad-based posterior disc bulges or mild protrusions resulting in mild encroachment of the lateral recesses. MRI brain: Normal noncontrast MRI of the brain. MRA brain: No evidence of vessel truncation or aneurysm, complete takotna Espinoza. * Continue neuro checks. * Neurology consulted. * See Headache management below. * Cleared for discharge today. Recommended outpatient physical therapy for cervical spondylosis. * Two week follow-up. ICD Codes: R29.818 - Other symptoms and signs involving the nervous system Status: Acute (3) Migraine Diagnosis: Principal Plan: Currently without any headache. * Started Topamax 25mg BID - to be continued at discharge. ICD Codes: G43.909 - Migraine, unspecified, not intractable, without status migrainosus Status: Chronic (4) Hypothyroidism Diagnosis: Secondary Plan: Impression: TSH on admission 4.04 (mild elevation but <5 with acute stressors) * Continue home dose levothyroxine 75mcg daily. ICD Codes: E03.9 - Hypothyroidism Status: Chronic (5) Fluids/Electrolytes/Nutrition/Prophylaxis Diagnosis: Principal Plan: Fluids: Tolerating PO Electrolytes: Monitor and replete as needed Nutrition: Regular diet DVT Prophylaxis: Early ambulation. Heparin 5000U subQ q12hr/Bilateral SCDs GI Prophylaxis: On omeprazole 20 mg daily at home, will continue PRN anti-HTN: Clonidine 0.1mg PO PRN for SBP > 180/ and/or DBP > 100 Sleep: On melatonin 5 mg nightly, will continue Status: Acute Brief History Patient is a 42-year-old patient with a history of coronary artery spasm and migraines who presents with chest pain and neurologic symptoms. She states she was sitting at her desk writing at approximately 5pm this evening and experienced crushing midsternal chest pain radiating to the back and left shoulder and arm. Character was sharp, pressure, crushing pain. Nausea present, no vomiting. Lasted 5-10 minutes. Associated symptoms were lightheadedness and cold sweat. Severity of pain 10+. gave her home dose of nitroglycerin x 2 and symptoms improved but not 100%. She had two more doses of nitro by EMS prior to ED arrival. Pain felt different than coronary artery spasm pain she has had before. Since ED arrival, status-post morphine and pain is now 2-3/10 in intensity but she is status-post multiple doses of morphine, nitroglycerin and aspirin (x1). Last week, patient had neurologic symptoms (07/15). She was driving from a friend's house and she began to feel confused, with left-sided weakness, numbness and tingling. She also had vision changes: she could not see details. She was seen in ED and stroke protocol was initiated. CT scan was performed and negative and patient was sent home with diagnosis of complex migraine. Symptoms lasted through to next day. Referral for neurologist was given in ED, but patient has not established. No current headaches but still has some residual visual acuity loss. No double vision. Left sided tingling returned today but not the weakness. PCP is Dr. Mauro Church. CBC/BMP: 07/25/17 0540 07/26/17 0609 PE at Discharge GENERAL: Patient sitting in chair in no acute distress. SKIN: Warm and dry. No rashes visible. EYES: Extraocular motion grossly intact. NECK: No pain to palpation of cervical vertebrae. CARDIOVASCULAR: Regular rate and rhythm. No murmurs. Normal peripheral perfusion. RESPIRATORY: Clear to auscultation bilaterally. GASTROINTESTINAL: Normal bowel sounds. Nontender, nondistended abdomen. MUSCULOSKELETAL: Extremities without edema. Grossly normal motor function and ROM. NEUROLOGICAL: Awake and alert. CN grossly intact. PSYCHIATRIC: Appropriate mood and affect; insight and judgment normal. Hospital Course Patient was admitted and evaluated by neurology for her neurologic symptoms as above. Brain MRI, brain MRA, and carotid artery ultrasound all within normal limits. Cervical spine MRI showed C6-C7 broad-based disc protrusion, worse in the left side with mild left lateral recess and foraminal stenosis. At C4-C6 broad-based posterior disc bulges or mild protrusions resulting in mild enrichment on the lateral recesses consistent with cervical spondylosis with radiculopathy. Neurology recommended physical therapy for cervical spondylosis and was cleared to discharge with follow-up in 2 weeks. Patient also diagnosed with hemiplegia migraine and prescribed Topamax 25 mg twice a day. In regards to her chest pain patient was evaluated by cardiology with stress test showing no ischemia. Her previous cardiac catheterization showed no significant disease. She was cleared for discharge by cardiology with a diagnosis of coronary vasospasm and ordered an outpatient echocardiogram within 2-3 days. Patient was discharged home on 07/26/17 with recommendations for PCP follow-up in 2-3 days as well as neurology follow-up in 2 weeks. She is also given orders for physical therapy to be completed as an outpatient. All of her home medications were continued with the addition of Topamax. At the time of discharge patient had no complaints and agreed with the medical plan as above. Pt Condition on Discharge: Good Discharge Disposition: Discharge Home Discharge Instructions DIET: Follow Instructions for: As Tolerated, No Restrictions Activities you can perform: See Additionl Instruction Other Activity Instructions: Per PT recs Follow up Referrals: Neurology - 2 Weeks with Volodymyr Palacios PhD, MD PCP Follow-up - 1 Week New Orders: 2D ECHO - 2-3 Days Physical Therapy - 1 Week New Medications: Topiramate (Topamax) 25 Mg Tab 25 MG PO Q12HR for 30 Days, #50 TAB Continued Medications: Amitriptyline (Amitriptyline) 10 Mg Tab 10 MG PO HS for Control Depression, #60 TAB 3 Refills Ylzdgzvnly-Rxlxkjy-Yrtwxrlk (Fiorinal) 50-325-40 Mg Cap 1 CAP PO Q6HR PRN for HEADACHE, #20 CAP 0 Refills Do not exceed 6 capsules/day. Diltiazem ER 24 HR (Cartia Xt) 120 Mg Caper 120 MG PO DAILY, #30 CAP 0 Refills Levothyroxine (Levothyroxine) 75 Mcg Tab 75 MCG PO DAILY for Thyroid, #60 TAB 6 Refills Melatonin (Melatonin) 5 Mg Tab 5 MG PO HS for Provide Good Sleep, #30 TAB 0 Refills Nitroglycerin SL (Nitroglycerin SL) 0.3 Mg Subl 0.3 MG SL DIRECTED PRN for CHEST PAIN, #100 TAB.SL 0 Refills ONE TABLET UNDER THE TONGUE NEEDED FOR CHEST PAIN, MAY REPEAT EVERY FIVE MINUTES FOR A TOTAL OF 3 DOSES OR CALL 911 IF NO RELIEF Omeprazole (Omeprazole) 20 Mg Tab 20 MG PO DAILY, #60 TAB 3 Refills Yohan Tellez MD R2 Jul 29, 2017 09:32
== END 2017-07-26 18:28 | disposition home or self-care (01) ==
LOC: NEPE 17:59 → INTOOBSV 20:12 → NEDA 20:12 → N05A 22:41
PROVIDERS: ADMIT Family Medicine; ATTEND Family Medicine
DX: R07.9 Chest pain, unspecified (principal); M47.22 Other spondylosis with radiculopathy, cervical region; G43.409 Hemiplegic migraine, not intractable, without status migrainosus; I20.1 Angina pectoris with documented spasm; E03.9 Hypothyroidism, unspecified; E78.00 Pure hypercholesterolemia, unspecified; Z79.899 Other long term (current) drug therapy; Z87.891 Personal history of nicotine dependence; R29.818 Other symptoms and signs involving the nervous system; R20.9 Unspecified disturbances of skin sensation; E87.6 Hypokalemia; I49.8 Other specified cardiac arrhythmias; R94.31 Abnormal electrocardiogram [ECG] [EKG]; H53.8 Other visual disturbances
CPT/HCPCS: 70544; 70551; 71010; 72141; 78452; 80048; 80053; 80061; 81001; 81240; 81241; 82550; 82948; 83036; 83690; 83735; 84443; 84484; 84702; 85025; 85303; 85306; 85610; 85613; 85652; 85730; 86147; 93005; 93017; 93306; 93880; 96372; 96374; 97110; 97116; 97161; 97166; 99285; A9502; G0378; G8987; G8988; G8989; J1644; J2270; J2785

== ENCOUNTER 2017-10-09 22:45 | Emergency (ER) | payer OTHER ==
[~2017-10-09] VITALS: Ht 154.9 cm; Wt 81.0 kg
[~2017-10-09 22:45] MED LIST changes: -MEDR4PAK PO; +PRED10 PO; +PRED20 PO; +PRED50 PO; +TOPI25 PO
[2017-10-09 22:47] VITALS: BP 148/92; PULSE 76; RESP 18; TEMP 98.5; O2SAT 100
--- NOTE | 2017-10-09 23:40 | RADRPT ---
EXAM DATE/TIME: 10/09/2017 23:26 [facility] COMPARISON: No previous studies available for comparison. INDICATIONS : Fall. Left wrist pain. MEDICAL HISTORY : None. SURGICAL HISTORY : None. ENCOUNTER: Initial ACUITY: 1 day PAIN SCORE: 7/10 LOCATION: Left upper extremity FINDINGS: Three view examination of the left wrist demonstrates no soft tissue swelling, dislocation, or fractu re. The carpal bones are in normal alignment. The joint spaces are maintained. Bony mineralization is normal. CONCLUSION: Normal examination for a patient of this age. Rei Lambert MD on October 09, 2017 at 23:37 Board Certified Radiologist. This report was verified electronically.
--- NOTE | 2017-10-09 23:41 | RADRPT ---
EXAM DATE/TIME: 10/09/2017 23:28 [facility] COMPARISON: No previous studies available for comparison. INDICATIONS : Fall. Left hand pain. MEDICAL HISTORY : None. SURGICAL HISTORY : None. ENCOUNTER: Initial ACUITY: 1 day PAIN SCORE: 7/10 LOCATION: Left upper extremity FINDINGS: Three view examination of the left hand demonstrates no soft tissue swelling, dislocation, or fractur e. The carpal bones appear intact. The interphalangeal and metacarpophalangeal joints are intact. Bony mineralization is normal. CONCLUSION: Normal examination for a patient of this age. Rei Lambetr MD on October 09, 2017 at 23:39 Board Certified Radiologist. This report was verified electronically.
[2017-10-10] MEDS ORDERED: TYLETAB34 PO (00:30)
[2017-10-10] MEDS ORDERED: ACETAMINOPHEN/CODEINE 300 MG/30 MG TAB PO ONE (00:30)
--- NOTE | 2017-10-10 00:31 | PD ---
HPI Chief Complaint: Injury Time Seen by Provider: 00:09 Travel History International Travel<30 days: No Contact w/Intl Traveler<30days: No Traveled to known affect area: No History of Present Illness HPI Patient is a 42-year-old female presenting to the emergency department for evaluation of left wrist pain. Patient was at [employer] when she slipped and fell onto her outstretched hand. They drove back home to [place] and the pain has gotten worse. She reports the pain as a 6 out of 10, she states as aching and throbbing. There are no alleviating factors, the pain is exacerbated with movement. Interim onset was gradual. She also reports abrasions to her knees but denies any knee pain or difficulty walking. Furthermore patient denies any head injury or loss of consciousness. PFSH Past Medical History Cardiovascular Problems: Yes (CORONARY SPASMS/ DIASTOLIC DYSFUNCTION) High Cholesterol: Yes Chest Pain: Yes Coronary Artery Disease: Yes Endocrine: Yes Gastrointestinal Disorders: Yes Headaches: Yes Thyroid Disease: Yes (HYPO) ?: Not : 2 Para: 2 Miscarriage: 0 : 0 Tubal Ligation: Yes Past Surgical History Abdominal Surgery: Yes (right ovary REMOVED;biopsy left ovary-- WITH PARTIAL REMOVAL) Cholecystectomy: Yes Coronary Artery Bypass Graft: No Hysterectomy: Yes Other Surgery: Yes (HYSTERECTOMY, TUBAL LIGATION) Social History Alcohol Use: No Tobacco Use: No Substance Use: No Allergies-Medications (Allergen,Severity, Reaction): Coded Allergies: No Known Allergies (Unverified Allergy, Unknown, 09/23/17) Reported Meds & Prescriptions Reported Meds & Active Scripts Active Prednisone 50 Mg Tab 50 Mg PO DAILY TAPERING REGIMEN: Take this starting on day #1 of treatment. Take until completion Prednisone 20 Mg Tab 20 Mg PO DAILY TAPERING REGIMEN: take this daily on the second week of treatment (starting on day #8). Take until completion Prednisone 10 Mg Tab 10 Mg PO DAILY TAPERING REGIMEN: take this daily starting on the 3rd (last) week of treatment Topamax (Topiramate) 25 Mg Tab 25 Mg PO Q12HR 30 Days Fiorinal (Butalbital/Aspirin/Caffeine) 50-325-40 Mg Cap 1 Cap PO Q6HR PRN Do not exceed 6 capsules/day. Melatonin 5 Mg Tab 5 Mg PO HS Omeprazole 20 Mg Tab 20 Mg PO DAILY Amitriptyline (Amitriptyline HCl) 10 Mg Tab 10 Mg PO HS Levothyroxine (Levothyroxine Sodium) 75 Mcg Tab 75 Mcg PO DAILY Reported Nitroglycerin SL (Nitroglycerin) 0.3 Mg Subl 0.3 Mg SL DIRECTED PRN ONE TABLET UNDER THE TONGUE NEEDED FOR CHEST PAIN, MAY REPEAT EVERY FIVE MINUTES FOR A TOTAL OF 3 DOSES OR CALL 911 IF NO RELIEF Cartia Xt (Diltiazem ER 24 HR) 120 Mg Caper 120 Mg PO DAILY Review of Systems Except as stated in HPI: all other systems reviewed are Neg Musculoskeletal: Positive: Myalgias, Arthralgias, Edema, Pain Skin: Positive Change in Pigmentation Physical Exam Narrative GENERAL: Well-developed, well-nourished, alert female. Presenting in no acute distress. SKIN: Warm and dry. Superficial abrasions to bilateral knees. Superficial abrasion to the palm of the left hand. Mild ecchymosis noted to the first MCP on the palmar aspect HEAD: Normocephalic. EYES: No scleral icterus. No injection or drainage. NECK: Supple, trachea midline. No JVD or lymphadenopathy. CARDIOVASCULAR: Regular rate and rhythm without murmurs, gallops, or rubs. RESPIRATORY: Breath sounds equal bilaterally. No accessory muscle use. GASTROINTESTINAL: Abdomen soft, non-tender, nondistended. MUSCULOSKELETAL: No cyanosis, or edema. Plus radial pulses, breakfast recent capillary refill. BACK: Nontender without obvious deformity. No CVA tenderness. Data Data Last Documented VS Vital Signs Date Time Temp Pulse Resp B/P (MAP) Pulse Ox O2 Delivery O2 Flow Rate FiO2 10/09/17 22:47 98.5 76 18 148/92 (110) 100 Orders Orders Wrist, Complete ([id number]) (10/09/17 ) Hand, Complete ([id number]) (10/09/17 ) Acetamin-Codeine 300-30 Mg (Tylenol-Code (10/10/17 00:30) MDM Medical Decision Making Medical Screen Exam Complete: Yes Emergency Medical Condition: Yes Interpretation(s) Last Impressions Wrist X-Ray 10/09/17 0000 Signed Impressions: Service Date/Time: Monday, October 09, 2017 23:26 - CONCLUSION: Normal examination for a patient of this age. Rei Lambert MD Vital Signs Date Time Temp Pulse Resp B/P (MAP) Pulse Ox O2 Delivery O2 Flow Rate FiO2 10/09/17 22:47 98.5 76 18 148/92 (110) 100 Differential Diagnosis Fracture versus sprain versus strain versus abrasions versus contusion versus other Narrative Course Patient is a 42-year-old female presenting for evaluation of left wrist and hand pain after sustaining a mechanical fall approximately 2 hours prior to arrival. Patient is neurovascularly intact, no focal deficits. There are superficial abrasions to her hand and knees. X-rays were ordered in triage, x- ray left hand and wrist are negative for acute fracture or abnormality. Patient was given Tylenol 3 for pain relief in the emergency department, be placed in an Talon wrap for support. She is encouraged to continue gentle range of motion exercises, alternate heat and ice to affected areas, avoid exacerbating activities, avoid bed rest. She was encouraged return to emergency department for any new or worsening symptoms. Patient verbalized understanding of instructions. Patient stable for discharge. Diagnosis Primary Impression: Wrist sprain Qualified Codes: S63.502A - Unspecified sprain of left wrist, initial encounter Additional Impression: Abrasion Referrals: Primary Care Physician Patient Instructions: General Instructions, Wrist Sprain (ED) Additional Instructions: Follow-up with your primary doctor Continue gentle range of motion exercises, altered a heat and ice to affected area, avoid exacerbating activities Take medications as needed and as directed for pain Return to emergency department for any new or worsening symptoms Med/Other Pt SpecificInfo: Prescription(s) given Scripts Acetaminophen-Codeine (Tylenol-Codeine #3) 300-30 mg Tab 1 TAB PO Q6H Y for PAIN, #10 TAB 0 Refills Prov: Ivelisse Morton 10/10/17 Disposition: 01 DISCHARGE HOME Condition: Stable Ivelisse Morton Oct 10, 2017 00:31
== END 2017-10-10 00:44 | disposition home or self-care (01) ==
LOC: NEPD 22:45
DX: S63.502A Unspecified sprain of left wrist, initial encounter (principal); E78.00 Pure hypercholesterolemia, unspecified; I25.10 Atherosclerotic heart disease of native coronary artery without angina pectoris; W01.0XXA Fall on same level from slipping, tripping and stumbling without subsequent striking against object, initial encounter; Y92.831 Amusement park as the place of occurrence of the external cause
CPT/HCPCS: 73110; 73130; 99283